=== PATIENT | male | born 1955 | race Caucasian/White ===

== ENCOUNTER 2017-06-08 17:49 | Emergency (ER) | payer MEDICARE, MEDICAID ==
--- NOTE | 2017-06-08 21:57 | RAD ---
TWO VIEW CHEST: 06/08/17 HISTORY: Cough. COMPARISON: 03/06/14. Also compared to 11/19/16. Lungs remain clear of infiltrate. Heart size is upper normal and stable. Dual lead pacemaker device i s unchanged. IMPRESSION: No acute lung process. POS: [facility]
== END 2017-06-08 19:57 | disposition home or self-care (01) ==
LOC: ERS 17:49
DX: J20.9 Acute bronchitis, unspecified (principal); I25.10 Atherosclerotic heart disease of native coronary artery without angina pectoris; E11.22 Type 2 diabetes mellitus with diabetic chronic kidney disease; Z86.73 Personal history of transient ischemic attack (TIA), and cerebral infarction without residual deficits; E78.00 Pure hypercholesterolemia, unspecified; F31.9 Bipolar disorder, unspecified; F41.9 Anxiety disorder, unspecified; F17.210 Nicotine dependence, cigarettes, uncomplicated; J44.9 Chronic obstructive pulmonary disease, unspecified; G43.909 Migraine, unspecified, not intractable, without status migrainosus; I12.9 Hypertensive chronic kidney disease with stage 1 through stage 4 chronic kidney disease, or unspecified chronic kidney disease; M19.90 Unspecified osteoarthritis, unspecified site; N18.9 Chronic kidney disease, unspecified
CPT/HCPCS: 71020; 87081; 87430; 94640; 99406; J7620

== ENCOUNTER 2017-10-04 16:28 | Emergency (ER) | payer MEDICARE, MEDICAID ==
[2017-10-04 17:48] LABS: #Basophils 0.1 thou/uL (0.0-0.2); #Eosinphils 0.2 thou/uL (0.0-0.7); #Lymphocytes 2.3 thou/uL (1.20-3.40); #Monocytes 1.1 thou/uL (0.11-0.59); %Basophils 0.8 % (0.0-1.0); %Eosinophils 1.4 % (0.0-10.0); %Lymphocytes 15.4 % (21.0-51.0); %Monocytes 7.3 % (0.0-10.0); %Neutrophils 75.1 % (42.0-75.0); Hemoglobin 18.9 g/dL (14.0-18.0); Mean Corpuscular HGB CONC 33.7 g/dL (32.0-36.0); Mean Corpuscular Hemoglobin 31.6 pg (27.0-31.0); Mean Corpuscular Volume 93.8 fl (80.0-94.0); Mean Platelet Volume 7.3 fL (7.4-10.4); Platelet Count 256 thou/uL (130-400); RBC Distribution Width 12.7 % (11.5-14.5); Red Blood Cell (RBC) Count 5.99 mill/uL (4.70-6.10); White Blood Cell (WBC) Count 14.6 thou/uL (4.8-10.8)
[2017-10-04 18:09] LABS: ALT (SGPT) 29 U/L (8-55); AST (SGOT) 29 U/L (5-34); Albumin 4.6 g/dL (3.4-4.8); Alkaline Phosphatase 89 U/L (40-150); Anion Gap 14 mmol/L (10-20); BUN (Urea Nitrogen) 13 mg/dL (8.4-25.7); Bilirubin, Total 0.8 mg/dL (0.2-1.2); Calc. Creatinine Clearance 0 mL/min (70-130); Calcium 10.5 mg/dL (7.8-10.44); Carbon Dioxide 29 mmol/L (23-31); Chloride 98 mmol/L (98-107); Estimated GFR-MDRD 64; Globulin 4.1 g/dL (2.4-3.5); Glucose 214 mg/dL (80-115); Potassium 4.2 mmol/L (3.5-5.1); Protein, Total 8.7 g/dL (5.8-8.1); Sodium 137 mmol/L (136-145)
--- NOTE | 2017-10-04 18:38 | RAD ---
RADIOGRAPH CHEST 2 VIEWS: DATE: 10-04-17 HISTORY: 62-year-old male with abscess in the left chest. FINDINGS: There is no air space density, pulmonary edema, pleural effusion, pneumothorax, or cardiomegaly. Ther e is no interval change compared to 06-08-17. If abscess in the soft tissues is to be imaged, a CT wo uld be necessary, preferably with IV contrast. IMPRESSION: 1. No acute cardiopulmonary findings. 2. Automatic implantable cardioverter/defibrillator. 3. Old, healed right rib fracture deformities. migue POS: [facility]
== END 2017-10-04 18:38 | disposition home or self-care (01) ==
LOC: ERS 16:28
DX: L03.313 Cellulitis of chest wall (principal); I25.10 Atherosclerotic heart disease of native coronary artery without angina pectoris; E11.22 Type 2 diabetes mellitus with diabetic chronic kidney disease; I12.0 Hypertensive chronic kidney disease with stage 5 chronic kidney disease or end stage renal disease; N18.9 Chronic kidney disease, unspecified; J44.9 Chronic obstructive pulmonary disease, unspecified; N40.0 Benign prostatic hyperplasia without lower urinary tract symptoms; E78.5 Hyperlipidemia, unspecified; G43.909 Migraine, unspecified, not intractable, without status migrainosus; G47.30 Sleep apnea, unspecified; F41.9 Anxiety disorder, unspecified; F43.10 Post-traumatic stress disorder, unspecified; F31.9 Bipolar disorder, unspecified; F17.210 Nicotine dependence, cigarettes, uncomplicated; Z86.73 Personal history of transient ischemic attack (TIA), and cerebral infarction without residual deficits; Z71.6 Tobacco abuse counseling; Z79.899 Other long term (current) drug therapy
CPT/HCPCS: 36415; 71046; 80053; 85025; 99406

== ENCOUNTER 2018-08-04 06:08 | Observation (INO) | payer MEDICARE, MEDICAID ==
[2018-08-04 06:29] LABS: #Eosinphils 0.1 thou/uL (0.0-0.7); #Lymphocytes 1.2 thou/uL (1.20-3.40); #Monocytes 0.8 thou/uL (0.11-0.59); #Neutrophils 3.8 thou/uL (1.40-6.50); %Basophils 0.4 % (0.0-1.0); %Eosinophils 1.1 % (0.0-10.0); %Lymphocytes 20.4 % (21.0-51.0); %Monocytes 13.8 % (0.0-10.0); %Neutrophils 64.3 % (42.0-75.0); Hemoglobin 17.7 g/dL (14.0-18.0); Mean Corpuscular HGB CONC 34.3 g/dL (32.0-36.0); Mean Corpuscular Hemoglobin 30.9 pg (27.0-31.0); Mean Corpuscular Volume 90.1 fL (78.0-98.0); Mean Platelet Volume 7.5 fL (7.4-10.4); Platelet Count 160 thou/uL (130-400); RBC Distribution Width 12.1 % (11.5-14.5); Red Blood Cell (RBC) Count 5.72 mill/uL (4.70-6.10); White Blood Cell (WBC) Count 5.9 thou/uL (4.8-10.8)
[2018-08-04] MEDS ORDERED: Nitroglycerin 0.4 MG TAB 1 EACH ONE ×2 (06:52→06:54)
[2018-08-04] MEDS ORDERED: Nitroglycerin 2% Ointment 1 INCH/1 GM Packet ONE (06:52)
[2018-08-04 06:54] LABS: ALT (SGPT) 43 U/L (8-55); AST (SGOT) 40 U/L (5-34); Alkaline Phosphatase 107 U/L (40-150); Anion Gap 16 mmol/L (10-20); BUN (Urea Nitrogen) 15 mg/dL (8.4-25.7); Bilirubin, Total 0.5 mg/dL (0.2-1.2); CK (CPK) 31 U/L (30-200); Calc. Creatinine Clearance 0 mL/min (70-130); Calcium 9.8 mg/dL (7.8-10.44); Carbon Dioxide 26 mmol/L (23-31); Chloride 99 mmol/L (98-107); Estimated GFR-MDRD 78; Globulin 3.8 g/dL (2.4-3.5); Glucose 199 mg/dL (80-115); Potassium 3.6 mmol/L (3.5-5.1); Protein, Total 7.8 g/dL (5.8-8.1); Sodium 137 mmol/L (136-145)
[2018-08-04 07:15] LABS: CKMB 1.3 ng/mL (0-6.6)
--- NOTE | 2018-08-04 08:43 | RAD ---
ONE VIEW CHEST: HISTORY: Pain. COMPARISON: 11/19/2016. FINDINGS: Stable left-sided transvenous defibrillator. Stable cardiac silhouette. The pulmonary vessels and h ilum are normal. Costophrenic angles are clear. No consolidation or mass. Lungs are hyperinflated. Chronic changes are noted. No pneumothorax. Old right rib fractures are noted. IMPRESSION: No acute cardiopulmonary process. POS: [facility]
--- NOTE | 2018-08-04 09:01 | CT ---
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 PT. Reports pa in radiates to middle back. Associated with throbbing and sore right arm. TECHNIQUE: Axial computed tomographic angiography images of the chest with intravenous contrast using CT angiogr aphy protocol. MIP reconstructed images were created and reviewed. COMPARISON: No relevant prior studies available. FINDINGS: Tubes, catheters and devices: A defibrillator device is present, and its leads are in appropriate pos ition. Pulmonary arteries: There is no evidence of peripheral filling defects within the pulmonary arterial circulation to suggest pulmonary embolism. Aorta: The aorta is normal. There is no evidence of aortic dissection, leak, rupture, or other compli cations. Lungs: Normal. No consolidation. No masses. Pleural space: Normal. No pneumothorax. No pleural effusion. Heart: There is a small pericardial fluid collection present. Lymph nodes: Unremarkable. No enlarged lymph nodes. Bones/joints: There are healed right rib fractures. Soft tissues: Unremarkable. IMPRESSION: 1. There is no evidence of aortic dissection, leak, rupture, or other complications. 2. There is no CT evidence of acute pulmonary embolism. CT Angiography Abdomen With Contrast EXAM DATE/TIME: 08/04/2018 6:38 AM TECHNIQUE: Axial computed tomographic angiography images of the abdomen with intravenous contrast material, incl uding non-contrast images if performed. MIP and/or 3D reconstructed images were created and reviewed. MIP reconstructed images were created and reviewed. COMPARISON: No relevant prior studies available. FINDINGS: Lungs: Unremarkable. No consolidation. VASCULATURE: Aorta: There is no evidence of aortic dissection, leak, rupture, or other complications. Celiac trunk and mesenteric arteries: There is trace atherosclerotic calcification at the origin of t he celiac artery and SMA without significant stenosis. Renal arteries: There is mild atherosclerosis at the origins of the bilateral renal arteries resultin g in mild stenosis. Left iliac arteries: There is mild to moderate atherosclerotic calcification at the iliac bifurcation and within the visualized bilateral internal iliac arteries. ABDOMEN: Liver: There are no focal liver lesions identified. Gallbladder and bile ducts: The gallbladder is normal. There is no evidence of biliary ductal dilatio n. Pancreas: The pancreas appears normal. No ductal dilatation. Spleen: There are multiple splenic hypodensities that cannot be further characterized on the current examination. The spleen demonstrates punctate calcifications, consistent with remote granulomatous organism exposure. Adrenals: The adrenal glands are normal. Kidneys and ureters: There are multiple renal hypodensities that cannot be further characterized on t he current examination. Stomach and bowel: The stomach is normal. The duodenum is unremarkable. There is no evidence of intes tinal perforation or obstruction. Appendix: A normal appendix is identified. Intraperitoneal space: Unremarkable. No free air. No significant fluid collection. Bones/joints: Unremarkable. No acute fracture. No dislocation. Soft tissues: Unremarkable. Lymph nodes: Unremarkable. No enlarged lymph nodes. IMPRESSION: There is no evidence of aortic dissection, leak, rupture, or other complications. Thank you for allowing us to participate in the care of your patient. Dictated and Authenticated by: Surinder Ruiz MD 08/04/2018 6:56 AM Central Time ([place] & [place]) FINAL REPORT CT ANGIOGRAM OF THORACIC AND ABDOMINAL AORTA: Date: 08/04/18 HISTORY: Chest pain. Evaluate for dissection. TECHNIQUE: CT angiogram of the thoracic and abdominal aorta performed in the axial plane. Three-dimensional refo rmatted images are submitted for interpretation. FINDINGS/IMPRESSION: This report is in agreement with the preliminary report by [facility]. There is no significant aneurysm or dissection in the thoracic or abdominal aorta. There is mild atherosclerosis involving both renal [place] without significant narrowing. There is minimal atherosclerosis involving the origin of the celiac artery and superior mesenteric artery. There is atherosclerosis with mild moderate narrowing and a short segment ulceration involving the left common iliac artery. Hypodensities in the spleen and kidneys are too small to characterize. Splenic hypodensities may, in part, be due to arterial phase of imaging. Visualized alimentary canal is unremarkable. POS: [facility]
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
[2018-08-04] MEDS ORDERED: Ondansetron ODT 4 MG TAB PO PRN (10:09)
[2018-08-04] MEDS ORDERED: Nitroglycerin 0.4 MG TAB (25 Tab Bottle) PO PRN (10:09)
[2018-08-04] MEDS ORDERED: Nitroglycerin 2% Ointment 1 INCH/1 GM Packet TOP PRN (10:09)
[2018-08-04 10:13] LABS: Troponin I 0.046 ng/mL (< 0.028)
[2018-08-04] MEDS ORDERED: Dextrose 5% in Water 1,000 ML IV PRN (11:14)
[2018-08-04] MEDS ORDERED: Dextrose 50% Abboject 50 ML SYRINGE SLOW IVP PRN (11:14)
[2018-08-04] MEDS ORDERED: HumaLOG 300 UNITS/3 ML VIAL SC PRN ×2 (11:14)
[2018-08-04] MEDS ORDERED: Lactated Ringer's 1,000 ML IV SCH (11:15)
[2018-08-04] MEDS ORDERED: Iopamidol 370 76% 100 ML VIAL ONE (11:20)
[2018-08-04 12:43] LABS: Troponin I 0.061 ng/mL (< 0.028)
[2018-08-04] MEDS ORDERED: traMADol HCl 50 MG TAB PO PRN ×5 (14:42→21:35)
--- NOTE | 2018-08-04 17:48 | ULT ---
ULTRASOUND ABDOMEN LIMITED: (RIGHT UPPER QUADRANT) 08/04/18 HISTORY: 63-year-old male with right upper quadrant abdominal pain. FINDINGS: The gallbladder has normal wall thickness and has no evidence of gallstones or sludge. The hepatic e chogenicity is normal. The right kidney has normal echogenicity and has no hydronephrosis. The panc reas is visualized, although ultrasound is relatively insensitive for pancreatic pathology compared t o CT and MRI. There is no biliary dilation. The common duct caliber is 2 mm. There is an approximat perico 1.5 cm round exophytic cyst protruding medially from the right renal mid pole. IMPRESSION: 1. No evidence of cholelithiasis, acute cholecystitis, or biliary obstruction. 2. Incidental finding of a small right renal cyst. 3. Otherwise negative. migue frey POS: [facility]
[2018-08-04] MEDS: NIFEdipine XL 60 MG TAB PO SCH (18:32)
[2018-08-04] MEDS: Nicotine 14 MG PATCH TD SCH (18:32)
--- NOTE | 2018-08-04 18:44 | HP ---
I have read and gone over the history and physical for Dr. Becky Lorenzo. I have discussed the case with her. I agree with her assessment and plan. HISTORY OF PRESENT ILLNESS: Briefly, Mr. Valdez is a 63-year-old white male patient with multiple comorbidities including previous history of coronary artery disease and COPD. He presented with several areas of pain in his lower back, right shoulder, right chest, and right upper quadrant of the abdomen. This has been ongoing for at least the last 12 to 24 hours. He is subsequently being admitted for further evaluation of numerous complaints. He also states that during the night he had at least a dozen episodes of vomiting and diarrhea and this morning does appear somewhat dry. No recent travel or unusual exposures. PHYSICAL EXAMINATION: GENERAL: He is awake, alert, very pleasant, but it does not appear to feel well. He is oriented x3. VITAL SIGNS: Stable except for slight tachycardia of 112. EAR, NOSE, AND THROAT: Mucous membranes are dry. NECK: Supple. CARDIAC: PMI is in the 5th intercostal space. Distant heart sounds with an S4 gallop. No murmur or rub are noted. LUNGS: His lungs are diminished, but clear without rales, rhonchi, wheezes. He is in no respiratory distress. ABDOMEN: He is somewhat tender in the right upper quadrant and seems to have a positive Sanz sign with palpation. We will delineate this further with an ultrasound. EXTREMITIES: Trace edema. NEUROLOGIC: No focal deficits. LABORATORY DATA: Thus far CBC; white count 5900, hemoglobin 17.7, hematocrit 51.5 with an MCV of 90. Chemistry; sodium 137, potassium 3.6, chloride 99, bicarb 26, BUN 15, creatinine 0.97, glucose 199. Tropes x2 are 0.042 and 0.046. His EKG does not show any acute ischemic changes. ASSESSMENT: Atypical back, chest and abdominal discomfort in a patient with a history of coronary artery disease and chronic obstructive pulmonary disease. PLAN: We will go ahead and perform a right upper quadrant ultrasound and stress Myoview. Proceed based on findings. Job ID: [id number]
[2018-08-04 19:03] LABS: CKMB 1.7 ng/mL (0-6.6)
[2018-08-04] MEDS: levETIRAcetam 500 MG TAB PO SCH ×3 (19:35→22:45)
[2018-08-04] MEDS: Atorvastatin Calcium 40 MG TAB PO SCH ×2 (19:35→22:08)
[2018-08-04 19:59] VITALS: BMI 29.0
[2018-08-04] MEDS ORDERED: HYDROcodone/Acetaminophen 10/325 mg Tablet PO SCH (21:00)
[2018-08-04] MEDS ORDERED: Metoprolol Tartrate 25 MG TAB PO SCH (21:00)
[2018-08-04] MEDS ORDERED: Atorvastatin Calcium 40 MG TAB PO SCH (21:00)
[2018-08-04] MEDS ORDERED: Insulin Glargine 60 UNITS in Pre-Filled Syringe 1 EACH SC SCH (21:00)
[2018-08-04] MEDS: Lactated Ringer's 1,000 ML IV SCH ×2 (22:13)
[2018-08-05] MEDS: Lactated Ringer's 1,000 ML IV SCH (08:10)
[2018-08-05] MEDS: levETIRAcetam 500 MG TAB PO SCH (08:11)
[2018-08-05] MEDS: NIFEdipine XL 60 MG TAB PO SCH (08:11)
[2018-08-05] MEDS: Nicotine 14 MG PATCH TD SCH (08:12)
--- NOTE | 2018-08-05 08:38 | PDOC.FM ---
- Subjective Subjective: Patient reports that the tramadol has helped with his back pain. He denies any current chest pain, SOB. He reports he has continued to have N/V/D, but that it has been a little better than on initial presentation. He denies any F/C. - Objective MAR Reviewed: Yes Vital Signs & Weight: Vital Signs (12 hours) Temp Pulse Resp BP Pulse Ox 08/05/18 08:11 62 08/05/18 07:32 62 16 105/66 97 08/05/18 03:06 98.3 F 98 20 125/89 95 08/04/18 23:43 97.9 F 94 18 131/79 94 L Weight Weight 81.647 kg I&O: 08/04/18 08/05/18 08/06/18 06:59 06:59 06:59 Intake Total 1445 Output Total 500 Balance 945 Result Diagrams: 08/04/18 06:19 08/04/18 06:19 Phys Exam - Physical Examination Constitutional: NAD HEENT: moist MMs, sclera anicteric Respiratory: no wheezing, no rales, no rhonchi, clear to auscultation bilateral Cardiovascular: RRR, no significant murmur, no rub Gastrointestinal: soft, no distention, positive bowel sounds mildly tender to palpation in lower quadrants Musculoskeletal: no edema, pulses present Tenderness over lumbar paraspinal muscles Neurological: non-focal, moves all 4 limbs Psychiatric: normal affect, A&O x 3 Skin: normal turgor, cap refill <2 seconds Dx/Plan (1) Chest pain Code(s): R07.9 - CHEST PAIN, UNSPECIFIED Status: Acute Qualifiers: Chest pain type: unspecified Qualified Code(s): R07.9 - Chest pain, unspecified (2) Gastroenteritis Code(s): K52.9 - NONINFECTIVE GASTROENTERITIS AND COLITIS, UNSPECIFIED Status : Acute (3) Dehydration Code(s): E86.0 - DEHYDRATION Status: Acute (4) MARIBETH (obstructive sleep apnea) Code(s): G47.33 - OBSTRUCTIVE SLEEP APNEA (ADULT) (PEDIATRIC) Status: Acute (5) COPD (chronic obstructive pulmonary disease) Status: Acute Qualifiers: COPD type: chronic bronchitis Chronic bronchitis type: unspecified Qualified Code(s): J42 - Unspecified chronic bronchitis (6) CKD (chronic kidney disease) stage 2, GFR 60-89 ml/min Code(s): N18.2 - CHRONIC KIDNEY DISEASE, STAGE 2 (MILD) Status: Acute (7) Anxiety and depression Code(s): F41.9 - ANXIETY DISORDER, UNSPECIFIED; F32.9 - MAJOR DEPRESSIVE DISORDER, SINGLE EPISODE, UNSPECIFIED Status: Chronic (8) BPH (benign prostatic hyperplasia) Code(s): N40.0 - BENIGN PROSTATIC HYPERPLASIA WITHOUT LOWER URINRY TRACT SYMP Status: Chronic Qualifiers: Lower urinary tract symptom presence: symptoms present Qualified Code(s): N40.1 - Benign prostatic hyperplasia with lower urinary tract symptoms (9) CAD (coronary artery disease) Code(s): I25.10 - ATHSCL HEART DISEASE OF [place] CORONARY ARTERY W/O ANG PCTRS Status: Chronic Qualifiers: Coronary Disease-Associated Artery/Lesion type: [place] artery [place] vs. transplanted heart: [place] heart Associated angina: angina presence unspecified Qualified Code(s): I25.10 - Atherosclerotic heart disease of [place] coronary artery without angina pectoris (10) DM type 2 (diabetes mellitus, type 2) Status: Chronic Qualifiers: Diabetes mellitus baseball coach insulin use: with baseball coach use Diabetes mellitus complication status: with unspecified complications Qualified Code(s) : E11.8 - Type 2 diabetes mellitus with unspecified complications; Z79.4 - habilitative interventionist (current) use of insulin (11) Dyslipidemia Code(s): E78.5 - HYPERLIPIDEMIA, UNSPECIFIED Status: Chronic (12) GERD (gastroesophageal reflux disease) Code(s): K21.9 - GASTRO-ESOPHAGEAL REFLUX DISEASE WITHOUT ESOPHAGITIS Status: Chronic Qualifiers: Esophagitis presence: without esophagitis Qualified Code(s): K21.9 - Gastro -esophageal reflux disease without esophagitis (13) HTN (hypertension) Code(s): I10 - ESSENTIAL (PRIMARY) HYPERTENSION Status: Chronic Qualifiers: Hypertension type: essential hypertension (14) Muscle spasm of back Code(s): M62.830 - MUSCLE SPASM OF BACK Status: Acute - Plan Plan: Chest Pain Atypical R sided chest pain that was sudden onset. CTA chest negative for dissection. Initial trop 0.042, peak trop 0.061. EKG showed no acute ST/T wave changes. Pain not improved with nitro and not reproducible on palpation. CXR showed no acute findings. RUQ US showed no signs of gallbladder pathology. Lipase WNL. -Aspirin -Stress test -Nitro prn -FLP pending -Continue statin Indeterminate Troponin Initial trop 0.042, peak trop 0.061. -Plan as above Gastroenteritis Pt with multiple episodes of emesis and diarrhea concerning for a viral gastroenteritis. s/p 1L LR bolus. -LR @ 120 -Zofran prn Dehydration -Plan as above Muscle Spasm Low back pain consistent with paraspinal muscle spasm -tylenol prn -Consider muscle relaxer CAD s/p stent -Continue aspirin and statin DM2 -Continue home lantus -SSI -CC diet -Accuchecks ACHS BPH -Cont flomax HLD -FLP -Cont atorvastatin HTN -Continue home enalapril, nifedipine -Held metoprolol for stress COPD No signs of acute exacerbation No need for O2 unless O2 sats < 88% -Duonebs prn CKD2 Stable from baseline -Continue to monitor Bipolar d/o -Continue home meds Seizure d/o -Continue home keppra Dispo: d/c home pending stress and PO challenge.
[2018-08-05 08:41] LABS: Anion Gap 11 mmol/L (10-20); BUN (Urea Nitrogen) 13 mg/dL (8.4-25.7); Calc. Creatinine Clearance 104 mL/min (70-130); Calcium 8.9 mg/dL (7.8-10.44); Carbon Dioxide 29 mmol/L (23-31); Cardiac Risk 3.9 (Less than 4.5); Chloride 100 mmol/L (98-107); Cholesterol 86 mg/dl (< 200 Desired); Estimated GFR-MDRD Greater than 90; Glucose 124 mg/dL (80-115); HDL Cholesterol 22 mg/dL (>60 Neg Risk); LDL Cholesterol, Calculated 20 mg/dL; Potassium 3.3 mmol/L (3.5-5.1); Sodium 137 mmol/L (136-145); Triglycerides 220 mg/dL (Less than 150)
[2018-08-05] MEDS ORDERED: Potassium Chloride 20 MEQ TAB PO SCH (08:45)
[2018-08-05] MEDS ORDERED: Tamsulosin HCl 0.4 MG CAP PO SCH (09:00)
[2018-08-05] MEDS ORDERED: Baclofen 10 MG TAB PO SCH (09:00)
[2018-08-05] MEDS ORDERED: Aspirin 325 MG TAB PO SCH (09:00)
[2018-08-05] MEDS ORDERED: DULoxetine 60 MG CAP PO SCH (09:00)
[2018-08-05] MEDS ORDERED: Regadenoson 0.4 MG/5 ML SYRINGE ONE (09:23)
--- NOTE | 2018-08-05 10:12 | PRG ---
DATE OF SERVICE: 08/05/2018 SUBJECTIVE: Mr. Valdez is much improved this morning. He is in much better spirits. His gallbladder ultrasound did not show any evidence of cholecystitis or cholelithiasis. He has not yet been sent for his stress Myoview. After this is completed and if normal or showing no reversible defects, he will be discharged. Job ID: [id number]
--- NOTE | 2018-08-05 13:50 | NM ---
NUCLEAR MEDICINE CARDIAC MYOCARDIAL PERFUSION SPECT EJECTION FRACTION STUDY WALL MOTION CINE: DATE: 08/05/18 HISTORY: 63-year-old hypertensive male smoker with coronary artery disease and prior myocardial infarction, di abetes mellitus, and dyslipidemia, presents with acute chest pain. TECHNIQUE: Number of days: 2 Rest study: Tc99m sestamibi (Cardiolite) dose: 27.6 mCi Pharmacologic stress: Lexiscan dose: 0.4 mg Stress study: Tc99m sestamibi (Cardiolite) dose: 32.7 mCi FINDINGS: CARDIAC (MYOCARDIAL PERFUSION) SPECT There is a fixed perfusion defect at the inferior wall. There are no reversible perfusion defects. EJECTION FRACTION STUDY EF = 38% WALL MOTION CINE No focal wall motion abnormality identified. IMPRESSION: 1. Inferior wall infarction/scar. 2. No reversible ischemia identified. 3. Decreased left ventricular ejection fraction of 38%. CALVIN Weir POS: [facility]
[2018-08-05 15:34] VITALS: BP 95/71; TEMP 97.5
--- NOTE | 2018-08-06 13:34 | EKG ---
Test Reason : Blood Pressure : / mmHG Vent. Rate : 102 BPM Atrial Rate : 102 BPM P-R Int : 174 ms QRS Dur : 090 ms QT Int : 366 ms P-R-T Axes : 042 007 069 degrees QTc Int : 477 ms Electronic atrial pacemaker Possible Inferior infarct , age undetermined Possible Anterior infarct , age undetermined Abnormal ECG left ventricular hypertrophy Confirmed by ROSINA WATKINS, SHAUN Up (9), supervising film or videotape editor JOANA BALDERAS ([id number]) on 08/06/2018 1:33:59 PM Referred By: Confirmed By:SHAUN ALMAGUER MD
--- NOTE | 2018-08-09 04:58 | DIS ---
DATE OF ADMISSION: 08/04/2018 DATE OF DISCHARGE: 08/05/2018 ADMITTING ATTENDING: Dr. Raymond Hansen. DISCHARGE ATTENDING: Dr. Raymond Hansen. CONSULTS: None. PROCEDURES: None. IMAGIN. Chest x-ray showed no acute cardiopulmonary process. 2. CT dissection showed no evidence of aortic dissection, leak, rupture or other complications. 3. Abdominal ultrasound showed no evidence of cholelithiasis, acute cholecystitis or biliary obstruction, incidental finding of some right renal cysts. 4. Nuclear stress test showed fixed perfusion defect of the inferior wall, no reversible perfusion defects. Diffuse left ventricular ejection fraction at 38% . 5. Echocardiogram showed EF of 55% to 60%, severe concentric left ventricular hypertrophy, E/A for reversal noted suggestive of diastolic dysfunction. PRIMARY DIAGNOSES: 1. Atypical chest pain. 2. Gastroenteritis. 3. Dehydration. 4. Muscle spasm in the lower back. 5. Indeterminant troponin. SECONDARY DIAGNOSES: 1. Coronary artery disease, status post stent. 2. Diabetes type 2. 3. Benign prostatic hypertrophy. 4. Hyperlipidemia. 5. Hypertension. 6. Chronic obstructive pulmonary disease. 7. Chronic kidney disease 2. 8. Bipolar disorder. 9. Seizure disorder. DISCHARGE MEDICATIONS: 1. Atorvastatin 40 mg p.o. daily. 2. Baclofen 10 mg p.o. b.i.d. 3. Duloxetine 60 mg p.o. daily. 4. Enalapril 2.5 mg p.o. daily. 5. Furosemide 20 mg p.o. daily. 6. Lantus 60 units subcu at bedtime. 7. Keppra 1000 mg p.o. b.i.d. 8. Metoprolol tartrate 50 mg p.o. b.i.d. 9. Nifedipine 60 mg p.o. daily. 10. Zofran 4 mg p.o. q.6h p.r.n. nausea or vomiting. 11. Sertraline 25 mg p.o. daily. 12. Tamsulosin 0.4 mg two caps p.o. daily. 13. Tramadol 50 mg one or two tabs q.6h p.r.n. pain. DISCONTINUED MEDICATIONS: None. HISTORY OF PRESENT ILLNESS/HOSPITAL COURSE: This is a 63-year-old male with a past medical history of coronary artery disease, diabetes, hypertension, hyperlipidemia, and COPD, who presented to the ER complaining of pain. The patient reported the pain was predominantly in his lower back and then some in his upper back and in the right side of his chest and shoulder and then also reported some lower abdominal pain. The patient reported that his symptoms started suddenly at 8 p.m. the night prior to his admission and that was associated with multiple episodes of vomiting and diarrhea. The patient did not have any shortness of breath and had only a chronic cough and that had not worsened. The patient denied any trauma or injury. The patient was found to be saturating at 88% on room air, so was started on oxygen, however, the patient has chronic COPD and was not reporting any worsening shortness of breath. The patient was given aspirin and nitro in the ER. He was admitted for a chest pain to rule out, also mildly dehydrated due to the recurrent nausea, vomiting, inability to tolerated p.o. and so he was started on fluids. He did have an initial troponin of 0.042 that had a peak of 0.061 and then down trended to 0.053. The patient had no acute ST or T wave changes on his EKG. The patient had a stress test done that showed evidence of an old prior infarct, but no acute reversible ischemia. He did not have recurrence of his chest pain and his nausea and vomiting improved where he was able to tolerate p.o. He had an aortic dissection ruled out and had no evidence of pneumonia on his chest x-ray. The patient's chest pain was likely a referred chest pain from his abdominal pain versus a musculoskeletal chest pain. The patient's back pain was found to be muscle spasm of his paraspinal muscles and his lumbar spine. This was treated with baclofen. The patient was found to have a likely viral gastroenteritis and was given Zofran for symptom management. By the end of this hospitalization, the patient had no further episodes of chest pain, was no longer having significant vomiting or diarrhea, was able to tolerate p.o. and was sent home with prescription for baclofen and Zofran. DISPOSITION: Stable. DISCHARGE INSTRUCTIONS: 1. Location: Home. 2. Diet: Heart healthy and consistent carb. 3. Activity: As tolerated. 4. Follow up with Dr. Indra Barr in 7 to 14 days. Job ID: [id number] [facility]
== END 2018-08-05 16:32 | disposition home or self-care (01) ==
LOC: ERS 06:08 → ERHOLD 09:21 → 2SW 16:25
PROVIDERS: ADMIT Family Medicine; ATTEND Family Medicine
DX: R07.89 Other chest pain (principal); K52.9 Noninfective gastroenteritis and colitis, unspecified; E86.0 Dehydration; M62.830 Muscle spasm of back; I25.10 Atherosclerotic heart disease of native coronary artery without angina pectoris; I12.9 Hypertensive chronic kidney disease with stage 1 through stage 4 chronic kidney disease, or unspecified chronic kidney disease; E11.22 Type 2 diabetes mellitus with diabetic chronic kidney disease; N18.2 Chronic kidney disease, stage 2 (mild); J44.9 Chronic obstructive pulmonary disease, unspecified; E78.5 Hyperlipidemia, unspecified; N40.0 Benign prostatic hyperplasia without lower urinary tract symptoms; G43.909 Migraine, unspecified, not intractable, without status migrainosus; G47.33 Obstructive sleep apnea (adult) (pediatric); G40.909 Epilepsy, unspecified, not intractable, without status epilepticus; F31.9 Bipolar disorder, unspecified; F41.9 Anxiety disorder, unspecified; F17.210 Nicotine dependence, cigarettes, uncomplicated; F43.10 Post-traumatic stress disorder, unspecified; Z86.73 Personal history of transient ischemic attack (TIA), and cerebral infarction without residual deficits; K21.9 Gastro-esophageal reflux disease without esophagitis; Z95.0 Presence of cardiac pacemaker; Z95.5 Presence of coronary angioplasty implant and graft; Z88.1 Allergy status to other antibiotic agents; Z88.6 Allergy status to analgesic agent; Z88.2 Allergy status to sulfonamides; Z79.4 Long term (current) use of insulin; Z79.899 Other long term (current) drug therapy; Z98.890 Other specified postprocedural states
CPT/HCPCS: 71045; 71275; 76705; 78452; 80048; 80053; 80061; 82550; 82553; 82962 ×2; 83690; 84484 ×2; 85025; 93005; 93017; 93306; 94760; 96360; 96361 ×2; 99285; 99406; A9500; G0378 ×2; 36415; 36416; J2785; Q0162

== ENCOUNTER 2018-09-12 14:16 | Emergency (ER) | payer MEDICARE, MEDICAID ==
--- NOTE | 2018-09-12 16:30 | ULT ---
DOPPLER VENOUS ULTRASOUND OF THE RIGHT LOWER EXTREMITY: INDICATION: Swollen and edematous right calf for 1 day. TECHNIQUE: Mills scale, color Doppler, and vascular duplex with spectral analysis was performed of the deep venou s structures of both lower extremities. The common femoral vein, superficial femoral vein, popliteal vein, posterior tibial vein, proximal greater saphenous, and proximal profunda veins were assessed bi laterally. FINDINGS: There is normal compression, flow, and augmentation seen within the deep venous structures of the rig ht lower extremity. IMPRESSION: No evidence of deep vein thrombosis within the right lower extremity. POS: [facility]
[2018-09-12 16:48] LABS: #Basophils 0.1 thou/uL (0.0-0.2); #Eosinphils 0.2 thou/uL (0.0-0.7); #Lymphocytes 2.4 thou/uL (1.20-3.40); #Monocytes 0.9 thou/uL (0.11-0.59); #Neutrophils 12.4 thou/uL (1.40-6.50); %Basophils 0.6 % (0.0-1.0); %Eosinophils 1.4 % (0.0-10.0); %Lymphocytes 14.8 % (21.0-51.0); %Monocytes 5.5 % (0.0-10.0); %Neutrophils 77.7 % (42.0-75.0); Hemoglobin 15.8 g/dL (14.0-18.0); Mean Corpuscular HGB CONC 34.3 g/dL (32.0-36.0); Mean Corpuscular Hemoglobin 32.2 pg (27.0-31.0); Mean Corpuscular Volume 94.1 fL (78.0-98.0); Mean Platelet Volume 7.3 fL (7.4-10.4); Platelet Count 237 thou/uL (130-400); RBC Distribution Width 12.8 % (11.5-14.5); Red Blood Cell (RBC) Count 4.89 mill/uL (4.70-6.10); White Blood Cell (WBC) Count 15.9 thou/uL (4.8-10.8)
--- NOTE | 2018-09-12 17:08 | CT ---
CT OF HEAD NONCONTRAST: COMPARISON: 11/19/2016. INDICATION: Emergency exam, swelling, progressive edema. FINDINGS: There is no acute intracranial hemorrhage, mass effect, or midline shift. There is a punctate hypoat tenuating focus of the left putamen, stable. There is a subtle linear oriented hypodensity of the ri ght hernandez radiata, stable, indicative of a chronic lacunar infarction. No interval acute intracrani al abnormality is identified. There is mild mucosal thickening within the paranasal sinuses. IMPRESSION: 1. No acute intracranial hemorrhage or mass effect. 2. Stable lacunar infarction of the left putamen and within the right hernandez radiata. POS: [facility]
[2018-09-12 17:12] LABS: ALT (SGPT) 49 U/L (8-55); AST (SGOT) 37 U/L (5-34); Albumin 4.3 g/dL (3.4-4.8); Alkaline Phosphatase 88 U/L (40-150); Anion Gap 14 mmol/L (10-20); BUN (Urea Nitrogen) 12 mg/dL (8.4-25.7); Bilirubin, Total 0.6 mg/dL (0.2-1.2); Calc. Creatinine Clearance 0 mL/min (70-130); Calcium 9.8 mg/dL (7.8-10.44); Carbon Dioxide 27 mmol/L (23-31); Chloride 100 mmol/L (98-107); Estimated GFR-MDRD Greater than 90; Globulin 3.1 g/dL (2.4-3.5); Glucose 166 mg/dL (80-115); Potassium 3.1 mmol/L (3.5-5.1); Protein, Total 7.4 g/dL (5.8-8.1); Sodium 138 mmol/L (136-145)
== END 2018-09-12 18:54 | disposition home or self-care (01) ==
LOC: ERS 14:16
DX: M79.89 Other specified soft tissue disorders (principal); E87.6 Hypokalemia; I25.10 Atherosclerotic heart disease of native coronary artery without angina pectoris; E11.9 Type 2 diabetes mellitus without complications; N40.0 Benign prostatic hyperplasia without lower urinary tract symptoms; E78.5 Hyperlipidemia, unspecified; G43.909 Migraine, unspecified, not intractable, without status migrainosus; G47.30 Sleep apnea, unspecified; Z86.73 Personal history of transient ischemic attack (TIA), and cerebral infarction without residual deficits; J44.9 Chronic obstructive pulmonary disease, unspecified; I12.9 Hypertensive chronic kidney disease with stage 1 through stage 4 chronic kidney disease, or unspecified chronic kidney disease; N18.9 Chronic kidney disease, unspecified; I25.2 Old myocardial infarction; F41.9 Anxiety disorder, unspecified; F31.9 Bipolar disorder, unspecified; F43.10 Post-traumatic stress disorder, unspecified; F17.210 Nicotine dependence, cigarettes, uncomplicated; Z79.899 Other long term (current) drug therapy; Z79.4 Long term (current) use of insulin
CPT/HCPCS: 70450; 80053; 83880; 84484; 85025; 93005

== ENCOUNTER 2019-06-13 15:09 | Emergency (ER) | payer MEDICARE, MEDICAID ==
[2019-06-13 15:36] LABS: #Basophils 0.1 thou/uL (0.0-0.2); #Eosinphils 0.5 thou/uL (0.0-0.7); #Lymphocytes 3.1 thou/uL (1.20-3.40); #Monocytes 1.4 thou/uL (0.11-0.59); #Neutrophils 12.7 thou/uL (1.40-6.50); %Basophils 0.6 % (0.0-1.0); %Eosinophils 2.6 % (0.0-10.0); %Lymphocytes 17.4 % (21.0-51.0); %Neutrophils 71.4 % (42.0-75.0); Hemoglobin 17.1 g/dL (14.0-18.0); Mean Corpuscular HGB CONC 33.2 g/dL (32.0-36.0); Mean Corpuscular Hemoglobin 29.8 pg (27.0-31.0); Mean Corpuscular Volume 89.9 fL (78.0-98.0); Mean Platelet Volume 6.8 fL (7.4-10.4); Platelet Count 320 thou/uL (130-400); RBC Distribution Width 12.1 % (11.5-14.5); Red Blood Cell (RBC) Count 5.75 mill/uL (4.70-6.10); White Blood Cell (WBC) Count 17.8 thou/uL (4.8-10.8)
--- NOTE | 2019-06-13 15:47 | RAD ---
Exam: XR Knee Rt 4 View STANDARD HISTORY: Right knee pain. Patient reports bump on knee which is painful to palpation. COMPARISON: None FINDINGS: Mild vascular calcifications are seen posterior to the knee. Calcifications overlie the medial and lateral joint compartments suggesting chondrocalcinosis. No acute fracture, dislocation, or other acute osseous abnormality is identified. There is a linear metallic foreign body seen overlying the subcutaneous soft tissues adjacent to the medial femoral condyle. IMPRESSION: 1. No acute osseous abnormality. 2. Chondrocalcinosis. 3. Tiny linear metallic foreign body overlying subcutaneous soft tissues adjacent to the medial femor al condyle. This is only appreciated on the AP projection.
[2019-06-13 15:57] LABS: ALT (SGPT) 22 U/L (8-55); AST (SGOT) 19 U/L (5-34); Albumin 4.1 g/dL (3.4-4.8); Alkaline Phosphatase 99 U/L (40-110); Anion Gap 11 mmol/L (10-20); BUN (Urea Nitrogen) 12 mg/dL (8.4-25.7); Bilirubin, Total 0.5 mg/dL (0.2-1.2); Calc. Creatinine Clearance 0 mL/min (70-130); Calcium 9.1 mg/dL (7.8-10.44); Carbon Dioxide 28 mmol/L (23-31); Chloride 101 mmol/L (98-107); Estimated GFR-MDRD 74; Globulin 3.8 g/dL (2.4-3.5); Glucose 157 mg/dL (80-115); Potassium 3.6 mmol/L (3.5-5.1); Protein, Total 7.9 g/dL (5.8-8.1); Sodium 136 mmol/L (136-145)
[2019-06-13] MEDS ORDERED: Lidocaine 2% MPF 10 ML AMP (For Epidural Use) ONE (18:37)
== END 2019-06-13 19:57 | disposition home or self-care (01) ==
LOC: ERS 15:09
DX: L02.415 Cutaneous abscess of right lower limb (principal); L03.115 Cellulitis of right lower limb; I25.10 Atherosclerotic heart disease of native coronary artery without angina pectoris; E11.9 Type 2 diabetes mellitus without complications; N40.0 Benign prostatic hyperplasia without lower urinary tract symptoms; E78.5 Hyperlipidemia, unspecified; E78.00 Pure hypercholesterolemia, unspecified; I10 Essential (primary) hypertension; G43.909 Migraine, unspecified, not intractable, without status migrainosus; G47.30 Sleep apnea, unspecified; Z86.73 Personal history of transient ischemic attack (TIA), and cerebral infarction without residual deficits; J44.9 Chronic obstructive pulmonary disease, unspecified; N18.9 Chronic kidney disease, unspecified; F41.9 Anxiety disorder, unspecified; F32.9 Major depressive disorder, single episode, unspecified; F17.210 Nicotine dependence, cigarettes, uncomplicated
CPT/HCPCS: 10061; 36415; 80053; 85025; 85652; 86140; 96372; J2001

== ENCOUNTER 2019-09-08 08:15 | Observation (INO) | payer MEDICARE, MEDICAID ==
[2019-09-08] MEDS ORDERED: Metoprolol Tartrate 5 MG/5 ML VIAL ONE ×2 (08:28→14:36)
[2019-09-08 08:48] LABS: #Basophils 0.1 thou/uL (0.0-0.2); #Eosinphils 0.2 thou/uL (0.0-0.7); #Lymphocytes 3.2 thou/uL (1.20-3.40); #Neutrophils 8.4 thou/uL (1.40-6.50); %Basophils 1.1 % (0.0-1.0); %Eosinophils 1.4 % (0.0-10.0); %Lymphocytes 24.7 % (21.0-51.0); %Monocytes 7.4 % (0.0-10.0); %Neutrophils 65.3 % (42.0-75.0); Mean Corpuscular HGB CONC 33.7 g/dL (32.0-36.0); Mean Corpuscular Hemoglobin 30.4 pg (27.0-31.0); Mean Corpuscular Volume 90.5 fL (78.0-98.0); Mean Platelet Volume 7.6 fL (7.4-10.4); Platelet Count 268 thou/uL (130-400); RBC Distribution Width 13.2 % (11.5-14.5); Red Blood Cell (RBC) Count 5.57 mill/uL (4.70-6.10); White Blood Cell (WBC) Count 12.9 thou/uL (4.8-10.8)
--- NOTE | 2019-09-08 09:06 | RAD ---
XR Chest 1 View Portable HISTORY: Defibrillator malfunction COMPARISON: 08/04/2018 FINDINGS: The heart size is normal. Left-sided AICD remains in place The lungs are well expanded with out focal areas of consolidation, pneumothorax or pleural effusions. IMPRESSION: No radiographic evidence of acute cardiopulmonary process.
[2019-09-08 09:13] LABS: ALT (SGPT) 30 U/L (8-55); AST (SGOT) 29 U/L (5-34); Albumin 4.4 g/dL (3.4-4.8); Alkaline Phosphatase 109 U/L (40-110); Anion Gap 15 mmol/L (10-20); BUN (Urea Nitrogen) 14 mg/dL (8.4-25.7); Bilirubin, Total 0.6 mg/dL (0.2-1.2); CK (CPK) 107 U/L (30-200); Calc. Creatinine Clearance 0 mL/min (70-130); Calcium 9.5 mg/dL (7.8-10.44); Carbon Dioxide 27 mmol/L (23-31); Chloride 98 mmol/L (98-107); Estimated GFR-MDRD 44; Globulin 3.6 g/dL (2.4-3.5); Glucose 317 mg/dL (80-115); Lipase 50 U/L (8-78); Potassium 3.1 mmol/L (3.5-5.1); Sodium 137 mmol/L (136-145)
[2019-09-08 09:33] LABS: CKMB 5.8 ng/mL (0-6.6)
--- NOTE | 2019-09-08 09:59 | PDOC.FPRHP ---
- History of Present Illness Chief Complaint: AICD Shock History of Present Illness: Pt is a 64 yo M who over exerted himself and "paid the flores". He was pushing a laundry hamper. He got shocked 5 times. 30s between the first 2 and then a minute between the next couple. It spanned 10 minutes. He says he does not usually exert himself that much. His son was with him at the time. He says he has had head and chest pain. He also experienced lightheadedness. He is still experiencing the pain although it is not as severe as it was before. He says the nitro alleviated some of the circulation issues and lightheadedness. This is the first time this has occurred. ED Course: In the ED patient's AICD was interrogated and revealed atrial tachycardia. Lopressor 5 mg given, fluids. In the emergency department she was atrial paced at 130's. - Allergies/Adverse Reactions Allergies Allergy/AdvReac Type Severity Reaction Status Date / Time Tetracyclines Allergy Severe Verified 08/04/18 18:43 NSAIDS (Non-Steroidal Allergy Unknown Verified 08/04/18 18:43 Anti-Inflamma sulfamethoxazole Allergy Unknown Verified 08/04/18 18:43 [From Bactrim] trimethoprim [From Bactrim] Allergy Unknown Verified 08/04/18 18:43 - Home Medications Medication Instructions Recorded Confirmed Type Atorvastatin Calcium [Lipitor] 40 mg PO DAILY 08/04/18 08/04/18 History DULoxetine HCl 60 mg PO DAILY 08/04/18 08/04/18 History Enalapril Maleate 2.5 mg PO DAILY 08/04/18 08/04/18 History Furosemide [Lasix] 20 mg PO DAILY 08/04/18 08/04/18 History Metoprolol Tartrate 50 mg PO BID 08/04/18 08/04/18 History NIFEdipine [Nifedipine ER] 60 mg PO DAILY 08/04/18 08/04/18 History Sertraline HCl 25 mg PO DAILY 08/04/18 08/04/18 History Tamsulosin HCl [Flomax] 2 cap PO DAILY 08/04/18 08/04/18 History levETIRAcetam [Keppra] 1,000 mg PO BID 08/04/18 08/04/18 History Baclofen [Lioresal] 10 mg PO BID #30 tab 08/05/18 Rx Insulin Glargine [Lantus Vial] 60 units SC HS vial 08/05/18 Rx Ondansetron [Zofran ODT] 4 mg PO Q6H PRN #10 tab 08/05/18 Rx traMADol HCl [Ultram] 50 mg PO Q6H PRN tab 08/05/18 Rx traMADol HCl [Ultram] 100 mg PO Q6H PRN tab 08/05/18 Rx Carvedilol [Coreg] 12.5 mg PO BID #60 tab 09/08/19 Rx - History PMHx: PA, 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 He smoked 43 years. The most was a pack day. No alcohol use. No drug use since 1974. 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 denies: cough , congestion Cardiovascular: reports: chest pain. denies: palpitation, edema Gastrointestinal: denies: nausea, vomiting, diarrhea, constipation Genitourinary: denies: dysuria, polyuria Skin: denies: rashes, lesions Musculoskeletal: reports: pain, tenderness Neurological: reports: weakness. denies: numbness, syncope Psychological: denies: anxiety, depression - Vital signs BP: 160/117 HR: 102 RR: 20 Tmax: 98.1 Pox: 98% on RA Wt: 82.5 kg - Physical Exam Constitutional: NAD, awake, alert and oriented HEENT: PERRLA, EOMI Neck: trachea midline, no JVD Chest: no-tender to palpation, no lesions Heart: normal S1/S2, pulses present Lungs: CTAB -Lungs: decreased air movement Abdomen: soft, bowel sounds present Musculoskeletal: normal tone, ROM grossly normal Neurological: no focal deficit, CN II-XII intact Skin: capillary refill <2 seconds, no jaundice Heme/Lymphatic: no purpura, no petechia Psychiatric: normal mood and affect, good judgment and insight FMR H&P: Results - Labs Result Diagrams: 09/08/19 08:36 09/08/19 08:36 Lab results: WBC 12.9 thou/uL (4.8-10.8) H 09/08/19 08:36 Hgb 17.0 g/dL (14.0-18.0) 09/08/19 08:36 Hct 50.4 % (42.0-52.0) 09/08/19 08:36 MCV 90.5 fL (78.0-98.0) 09/08/19 08:36 Plt Count 268 thou/uL (130-400) 09/08/19 08:36 Neutrophils % 65.3 % (42.0-75.0) 09/08/19 08:36 Sodium 137 mmol/L (136-145) 09/08/19 08:36 Potassium 3.1 mmol/L (3.5-5.1) L 09/08/19 08:36 Chloride 98 mmol/L (98-107) 09/08/19 08:36 Carbon Dioxide 27 mmol/L (23-31) 09/08/19 08:36 BUN 14 mg/dL (8.4-25.7) 09/08/19 08:36 Creatinine 1.60 mg/dL (0.7-1.3) H 09/08/19 08:36 Glucose 317 mg/dL (80-115) H 09/08/19 08:36 Calcium 9.5 mg/dL (7.8-10.44) 09/08/19 08:36 Total Bilirubin 0.6 mg/dL (0.2-1.2) 09/08/19 08:36 AST 29 U/L (5-34) 09/08/19 08:36 ALT 30 U/L (8-55) 09/08/19 08:36 Alkaline Phosphatase 109 U/L (40-110) 09/08/19 08:36 Creatine Kinase 107 U/L (30-200) 09/08/19 08:36 CK-MB (CK-2) 5.8 ng/mL (0-6.6) 09/08/19 08:36 Serum Total Protein 8.0 g/dL (5.8-8.1) 09/08/19 08:36 Albumin 4.4 g/dL (3.4-4.8) 09/08/19 08:36 Lipase 50 U/L (8-78) 09/08/19 08:36 - EKG Interpretation EKG: Atrial paced rhythm with prolonged AV conduction, Rate 82 - Radiology Interpretation Chest x-ray Status: image reviewed by me, report reviewed by me Additional comment: No acute abnormalities, heart size normal FMR H&P: A/P - Problem List (1) Chest pain Current Visit: No Status: Acute Code(s): R07.9 - CHEST PAIN, UNSPECIFIED Qualifiers: Chest pain type: unspecified Qualified Code(s): R07.9 - Chest pain, unspecified (2) GERD (gastroesophageal reflux disease) Current Visit: No Status: Chronic Code(s): K21.9 - GASTRO-ESOPHAGEAL REFLUX DISEASE WITHOUT ESOPHAGITIS Qualifiers: Esophagitis presence: without esophagitis Qualified Code(s): K21.9 - Gastro -esophageal reflux disease without esophagitis (3) HTN (hypertension) Current Visit: No Status: Chronic Code(s): I10 - ESSENTIAL (PRIMARY) HYPERTENSION Qualifiers: Hypertension type: essential hypertension Qualified Code(s): I10 - Essential (primary) hypertension (4) CKD (chronic kidney disease) stage 2, GFR 60-89 ml/min Current Visit: No Status: Acute Code(s): N18.2 - CHRONIC KIDNEY DISEASE, STAGE 2 (MILD) (5) COPD (chronic obstructive pulmonary disease) Current Visit: No Status: Acute Qualifiers: COPD type: chronic bronchitis Chronic bronchitis type: unspecified Qualified Code(s): J42 - Unspecified chronic bronchitis (6) CAD (coronary artery disease) Current Visit: No Status: Chronic Code(s): I25.10 - ATHSCL HEART DISEASE OF [place] CORONARY ARTERY W/O ANG PCTRS Qualifiers: Coronary Disease-Associated Artery/Lesion type: [place] artery [place] vs. transplanted heart: [place] heart Associated angina: angina presence unspecified Qualified Code(s): I25.10 - Atherosclerotic heart disease of [place] coronary artery without angina pectoris (7) DM type 2 (diabetes mellitus, type 2) Current Visit: No Status: Chronic Qualifiers: Diabetes mellitus senior care insulin use: with general accountant use Diabetes mellitus complication status: with unspecified complications (8) Dyslipidemia Current Visit: No Status: Chronic Code(s): E78.5 - HYPERLIPIDEMIA, UNSPECIFIED - Plan Pt is a 64 yo male here for dysrhythmia resulting in a shock from his AICD: # Dysrhythmia - consulted cardiology, Dr. Hurtado. - Currently atrial paced with regular rate - Denies current chest pain - trend trops - initial 0.115 # Elevated Trop - trend # ANTONY - no nephrotoxic agents - fluids - monitor # Hypokalemia - replete # Combined Diastolic/Systolic Heart Failure - continue home meds # DM Insulin Dependent w/ neuropathy - continue home meds - sliding scale insulin initiated # HLD - continue home meds # COPD - continue home meds # HTN - continue home meds # OA # BPH - continue home meds # Anxiety - continue home meds # Tobacco Abuse - encourage cessation - patch Fluids: LR 125 mls/hr VTE: none Diet: HH, Low Sodium Code: DNR Dispo: admit to tele with > 48 hr stay FMR H&P: Upper Level - Pertinent history 64 y/o M PMHx DM2, HTN, HLD, CAD s/p PA with 1 stent, COPD, and tobacco abuse presents to the ED after getting shocked by his AICD 5 times. The patient reports that he was trying to push a laundry basket, which is more than he normally exerts himself and he started getting short of breath and then got shocked 5 times about 1-3 min apart each time. He reports chest pain and headache that happened after the shocks. 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 He has an AICD/pacemaker in place that he had replaced a few years back because his first one had been in 10 years. AICD was interrogated by ED and they found atrial tach. - Pertinent findings PE: Gen - alert, oriented, NAD Resp - no respiratory distress Ext - no cyanosis or edema Labs: WBC 12.9, K 3.1, trop 0.115, Cr 1.60 - Plan Date/Time: 09/08/19 0957 I, Becky Lorenzo MD, PGY-3, have evaluated this patient and agree with findings/ plan as outlined by audit practice intern resident. Pertinent changes/additions are listed here. Atrial Arrythmia s/p AICD defibrillation -Will consult Dr. Hurtado with cardiology, appreciate recs -Initial trop indeterminate, will trend -Monitor on telemetry -Monitor electrolytes Elevated troponin Trop 0.115 and pt has h/o PA with 1 stent placed -Trend trops ANTONY -Will give fluids and monitor -Avoid nephrotoxic agents Hypokalemia Initial K 3.1 -Replete and monitor h/o Hemorrhage CVA Would be hesitant to put on anticoagulation at this time, will follow cards recs regarding this DM2 -SSI -Continue home meds -Accuchecks ACHS HTN -Continue home meds Tobacco Abuse -Encourage cessation COPD -Continue home meds, no signs of exacerbation at this time Dispo: Admit to tele LOS: Likely 2 days
[2019-09-08] MEDS ORDERED: Aspirin Chewable 81 MG TAB ONE (10:05)
[2019-09-08] MEDS ORDERED: Potassium Chloride 20 MEQ in Lactated Ringer's 1,000 ML IV SCH (11:31)
[2019-09-08] MEDS ORDERED: Insulin Regular 300 UNITS/3 ML VIAL SC PRN (12:14)
[2019-09-08] MEDS ORDERED: Dextrose 50% Abboject 50 ML SYRINGE SLOW IVP PRN (12:14)
[2019-09-08] MEDS ORDERED: HumaLOG 300 UNITS/3 ML VIAL SC PRN ×3 (12:14→14:04)
[2019-09-08] MEDS ORDERED: Dextrose 5% in Water 1,000 ML IV PRN (12:14)
[2019-09-08 12:42] LABS: Troponin I 0.416 ng/mL (< 0.028)
[2019-09-08 12:46] LABS: Magnesium 1.7 mg/dL (1.6-2.6); Phosphorus 2.7 mg/dL (2.3-4.7)
[2019-09-08] MEDS ORDERED: Nicotine 14 MG PATCH TD SCH (13:00)
[2019-09-08] MEDS ORDERED: Enoxaparin Sodium 80 MG/0.8 ML SYRINGE SC SCH ×3 (13:03→21:00)
[2019-09-08] MEDS ORDERED: Metoprolol Tartrate 5 MG/5 ML VIAL IVP SCH (13:10)
[2019-09-08] MEDS ORDERED: Enoxaparin Sodium 80 MG/0.8 ML SYRINGE ONE (14:36)
[2019-09-08 15:06] LABS: Troponin I 0.535 ng/mL (< 0.028)
[2019-09-08] MEDS ORDERED: Carvedilol 6.25 MG TAB PO SCH (21:00)
--- NOTE | 2019-09-12 11:02 | CON ---
DATE OF CONSULTATION: Dictated by Shirley Dave PA-C, as scribe for Dr. Shin Villeda. REASON FOR CONSULTATION: ICD discharge and device management. PHYSICIAN CONSULTED: Shin Villeda MD. HISTORY OF PRESENT ILLNESS: Mr. Valdez is a 64-year-old gentleman, well known to our practice for history of ventricular and atrial arrhythmias with inclusion of a dual-chamber ICD. He has had low-burden atrial fibrillation, which he is asymptomatic. Given his history of multiple intracranial hemorrhages, he is not a candidate for oral anticoagulation. He also has a history of monomorphic ventricular tachycardia that has been responsive to ATP therapies in the past, but largely quiescent. He is on beta-ann therapy alone, although antiarrhythmic therapy with sotalol was entertained at the last visit, but the patient did decline this option. Mr. Valdez presents to the emergency room at [facility] after an AICD discharge. He was doing laundry with his son and was pushing a laundry hamper when he reports he was shocked repeatedly, 5 times. He reports he usually does not exert himself that much. Subsequently, he had head pain and chest pain with lightheadedness. His AICD was interrogated, showing sinus tachycardia, and IV Lopressor 5 mg was given, which was very effective in gradually reducing his heart rate to normal ranges. EP consultation is requested given the ICD discharge. Mr. aVldez denies any current heart racing, palpitations, chest pain, pressure, syncope, near syncope, stroke, or stroke-like symptoms. REVIEW OF SYSTEMS: Positive for recent ICD discharges, recent chest pain that is not ongoing, recent lightheadedness that has resolved. PAST MEDICAL HISTORY: 1. Coronary artery disease status post myocardial infarction and PCI. 2. Ischemic cardiomyopathy, ejection fraction 45%. 3. Monomorphic ventricular tachycardia, responsive to ATP therapies. 4. Dual-chamber ICD, [employer], status post generator change on 09/23/2018. 5. Hypertension, severe and poorly controlled, difficult to control with medications. 6. Type 2 diabetes. 7. Dyslipidemia. 8. Bipolar disorder. 9. Seizure disorder. 10. Multiple intracranial hemorrhages/hemorrhagic strokes, total of 8 per the patient. 11. Paroxysmal atrial fibrillation, low burden. ALLERGIES: BACTRIM, NSAIDS, AND TETRACYCLINE. MEDICATIONS: Home medications per our office note include: 1. Clonazepam 1 mg as needed. 2. Clonidine 0.3 mg p.o. b.i.d. 3. Enalapril 20 mg p.o. b.i.d. 4. Potassium daily. 5. Nifedipine 30 mg daily. 6. Metoprolol tartrate 50 mg b.i.d. 7. Furosemide 40 mg daily. 8. Keppra 1000 mg b.i.d. 9. Aspirin 81 mg daily. 10. Tamsulosin 0.4 mg daily. 11. Symbicort two puffs b.i.d. 12. Lantus as directed. 13. Tramadol 50 mg p.o. p.r.n. 14. Duloxetine 60 mg daily. 15. Zofran as needed. 16. Sertraline 25 mg daily. 17. Amitriptyline 25 mg nightly. OBJECTIVE: VITAL SIGNS: A paced V sensed sinus rhythm with controlled heart rates, narrow QRS, occasional PVCs are seen. Blood pressure is stable. Vital sign documentation per ER records. EKG shows A paced, V sensed sinus rhythm with PVCs. DEVICE CHECK: This is a [employer] Fort[employer]ura dual-chamber ICD, status post generator change on 09/23/2018. Lead parameters are stable. Underlying rhythm is currently sinus rhythm, atrial pacing, ventricular sensing. Recent sinus tachycardia that was quite rapid falling in the VT zone is seen. There was ventricular ectopy throughout this episode, that met the VF discriminators triggering the AICD discharge. There was no ventricular tachycardia. Atrial fibrillation burden is less than 1%. The ventricular fibrillation zone rate was increased to 240 to prevent further AICD discharges from his fast sinus rhythm/atrial tachycardia. IMPRESSION: 1. Recent automatic implantable cardioverter-defibrillator discharge. 2. Sinus tachycardia/atrial tachycardia, the patient had not been taking his beta blockers for approximately 3 weeks. 3. Hypertension, poorly controlled. 4. History of multiple hemorrhagic strokes. 5. Premature ventricular complexes. 6. Atrial fibrillation, low burden, currently quiescent. 7. Dual-chamber implantable cardiac defibrillator. PLAN AND RECOMMENDATIONS: Mr. Valdez unfortunately had run out of his beta-ann therapy, metoprolol, approximately 3 weeks ago. As a result, we do see that he was experiencing sinus tachycardia/atrial tachycardia, that in conjunction with his ventricular ectopy met the criteria for his VF zone discriminators with his ICD and he did receive an ICD discharge for this. I have had his VF zone adjusted to 240 beats per minute to prevent additional ICD discharges should he get this fast again, but largely he needs to resume his beta-ann therapy and not miss any more doses. He also continues to struggle with poorly controlled hypertension, which is an ongoing issue for him. He has a long-time history of smoking greater than 42 years, currently smoking 5 cigarettes a day and likely has COPD, though no formal diagnosis by our records. I will switch him to Coreg 12.5 mg p.o. b.i.d., but he will likely require 25 mg b.i.d. His lungs may tolerate this therapy a bit better than metoprolol. This was discussed at length with José Miguel, and he understands the importance of this medication. At this point, no atrial or ventricular arrhythmias are an ongoing issue, so will refrain from antiarrhythmic therapy. Consideration for sotalol therapy has been given in the past, but there is no indication for that today. I will see him back in 6 weeks or sooner if symptoms dictate. He does have a home monitor for his ICD in place. Thank you for allowing us to participate in the care of this patient. Job ID: [id number]
--- NOTE | 2019-09-23 11:25 | EKG ---
Test Reason : Blood Pressure : / mmHG Vent. Rate : 134 BPM Atrial Rate : 134 BPM P-R Int : 000 ms QRS Dur : 088 ms QT Int : 350 ms P-R-T Axes : 000 013 086 degrees QTc Int : 522 ms Sinus tachycardia Anteroseptal infarct , age undetermined Abnormal ECG Confirmed by ESTRELLA HUMMEL DO ([id number]), writer editor JOANA BALDERAS ([id number]) on 09/23/2019 11:24:50 AM Referred By: Confirmed By:ESTRELLA HUMMEL DO
--- NOTE | 2019-09-23 11:25 | EKG ---
Test Reason : Blood Pressure : / mmHG Vent. Rate : 082 BPM Atrial Rate : 082 BPM P-R Int : 212 ms QRS Dur : 102 ms QT Int : 404 ms P-R-T Axes : -25 -08 052 degrees QTc Int : 472 ms Atrial-paced rhythm with prolonged AV conduction Minimal voltage criteria for LVH, may be normal variant Inferior infarct , age undetermined Cannot rule out Anterior infarct , age undetermined Abnormal ECG Confirmed by ESTRELLA HUMMEL DO ([id number]), assignment desk editor JOANA BALDERAS ([id number]) on 09/23/2019 11:25:12 AM Referred By: Confirmed By:ESTRELLA HUMMEL DO
== END 2019-09-08 15:27 | disposition home or self-care (01) ==
LOC: ERS 08:15 → ERHOLD 09:59 → INTOOBSV 10:18 → OBSVTOIN 10:18 → INTOOBSV 14:52
PROVIDERS: ADMIT Family Medicine; ATTEND Family Medicine
DX: I47.1 Supraventricular tachycardia (principal); I13.0 Hypertensive heart and chronic kidney disease with heart failure and stage 1 through stage 4 chronic kidney disease, or unspecified chronic kidney disease; E11.40 Type 2 diabetes mellitus with diabetic neuropathy, unspecified; E11.22 Type 2 diabetes mellitus with diabetic chronic kidney disease; I50.42 Chronic combined systolic (congestive) and diastolic (congestive) heart failure; N18.3 Chronic kidney disease, stage 3 (moderate); N17.9 Acute kidney failure, unspecified; G40.909 Epilepsy, unspecified, not intractable, without status epilepticus; F41.9 Anxiety disorder, unspecified; E78.5 Hyperlipidemia, unspecified; I25.2 Old myocardial infarction; F43.10 Post-traumatic stress disorder, unspecified; F17.210 Nicotine dependence, cigarettes, uncomplicated; J44.9 Chronic obstructive pulmonary disease, unspecified; K21.9 Gastro-esophageal reflux disease without esophagitis; I25.10 Atherosclerotic heart disease of native coronary artery without angina pectoris; E87.6 Hypokalemia; M19.90 Unspecified osteoarthritis, unspecified site; N40.0 Benign prostatic hyperplasia without lower urinary tract symptoms; Z79.4 Long term (current) use of insulin; Z79.899 Other long term (current) drug therapy; Z86.73 Personal history of transient ischemic attack (TIA), and cerebral infarction without residual deficits; Z88.1 Allergy status to other antibiotic agents; Z88.2 Allergy status to sulfonamides; Z88.6 Allergy status to analgesic agent; Z95.1 Presence of aortocoronary bypass graft; Z95.810 Presence of automatic (implantable) cardiac defibrillator; Z66 Do not resuscitate
CPT/HCPCS: 36415; 71045; 80053; 82550; 82553; 83690; 83735; 84100; 84484; 85025; 93005; 96374; J1650; J3480; J7120

== ENCOUNTER 2020-01-15 11:33 | Inpatient (IN) | payer MEDICARE, MEDICAID, OTHER ==
--- NOTE | 2020-01-15 12:42 | RAD ---
Chest AP view INDICATION: History of shortness of breath COMPARISON: Prior exam dated September 08, 2019 FINDINGS: Lungs: There is new airspace opacities seen involving the region of the left lower lobe and lingula suspicious for pneumonia. This is superimposed on mild/moderate emphysema. Cardiac silhouette: There is mild cardiac megaly Pulmonary vasculature: Normal Pleural spaces: No pleural effusion or pneumothorax is demonstrated. Upper abdomen: No abnormality seen. Osseous structures: No acute osseous abnormality. Additional findings: Dual-lead AICD is unchanged. IMPRESSION: New airspace opacity in the left lower lobe and lingula suspicious for pneumonia. Recommend radiograp hic follow-up to resolution.
[2020-01-15 12:45] LABS: #Basophils 0.1 thou/uL (0.0-0.2); #Eosinphils 0.7 thou/uL (0.0-0.7); #Lymphocytes 3.7 thou/uL (1.20-3.40); #Monocytes 1.4 thou/uL (0.11-0.59); #Neutrophils 11.3 thou/uL (1.40-6.50); %Basophils 0.7 % (0.0-1.0); %Eosinophils 3.9 % (0.0-10.0); %Lymphocytes 21.6 % (21.0-51.0); %Monocytes 8.3 % (0.0-10.0); %Neutrophils 65.4 % (42.0-75.0); Hemoglobin 16.2 g/dL (14.0-18.0); Mean Corpuscular HGB CONC 33.4 g/dL (32.0-36.0); Mean Corpuscular Hemoglobin 30.4 pg (27.0-31.0); Mean Platelet Volume 6.6 fL (7.4-10.4); Platelet Count 363 thou/uL (130-400); RBC Distribution Width 12.7 % (11.5-14.5); Red Blood Cell (RBC) Count 5.33 mill/uL (4.70-6.10); White Blood Cell (WBC) Count 17.3 thou/uL (4.8-10.8)
[2020-01-15 13:07] LABS: ALT (SGPT) 25 U/L (8-55); AST (SGOT) 28 U/L (5-34); Albumin 3.9 g/dL (3.4-4.8); Alkaline Phosphatase 127 U/L (40-110); Anion Gap 13 mmol/L (10-20); BUN (Urea Nitrogen) 16 mg/dL (8.4-25.7); Bilirubin, Total 0.3 mg/dL (0.2-1.2); Calc. Creatinine Clearance 0 mL/min (70-130); Calcium 9.3 mg/dL (7.8-10.44); Carbon Dioxide 27 mmol/L (23-31); Chloride 102 mmol/L (98-107); Estimated GFR-MDRD 59; Globulin 3.9 g/dL (2.4-3.5); Glucose 158 mg/dL (80-115); Potassium 3.4 mmol/L (3.5-5.1); Protein, Total 7.8 g/dL (5.8-8.1); Sodium 139 mmol/L (136-145)
[2020-01-15 13:12] LABS: CKMB 2.7 ng/mL (0-6.6)
[2020-01-15] MEDS ORDERED: Azithromycin 500 MG VIAL ONE (13:58)
[2020-01-15] MEDS ORDERED: cefTRIAXone\\ROCEPHIN 1 GM VIAL ONE (13:58)
[2020-01-15] MEDS ORDERED: Aspirin Chewable 81 MG TAB ONE (13:58)
--- NOTE | 2020-01-15 14:47 | PDOC.FPRHP ---
- History of Present Illness Chief Complaint: Shortness of Breath History of Present Illness: 64 yo male PMHX, DMII, CAD, HFrEF, AICD, COPD, Anxiety, tobacco use, presents with shortness of breath x 2 weeks accompanied by productive cough. Patients states he passes out sometimes from coughing or when he is smoking. Sometimes he feels dizzy and nauseous before passing out but sometimes not. His son had an exposure to a [employer] that was COVID positive. Denies fever, chills, diarrhea. Patient notes he smokes 8 cigarettes a day, takes all of his medications regularly and is not on home O2. ED Course: COVID swabbed, got 500 azithromycin, 1g ceftriaxone, 1L NS - Allergies/Adverse Reactions Allergies Allergy/AdvReac Type Severity Reaction Status Date / Time Tetracyclines Allergy Severe Verified 10/06/19 22:27 NSAIDS (Non-Steroidal Allergy Unknown Verified 10/06/19 22:27 Anti-Inflamma sulfamethoxazole Allergy Unknown Verified 10/06/19 22:27 [From Bactrim] trimethoprim [From Bactrim] Allergy Unknown Verified 10/06/19 22:27 - Home Medications Medication Instructions Recorded Confirmed Type levETIRAcetam [Keppra] 1,000 mg PO BID 08/04/18 01/15/20 History traMADol HCl [Ultram] 50 mg PO Q6H PRN tab 08/05/18 01/15/20 Rx Carvedilol [Coreg] 12.5 mg PO BID #60 tab 09/08/19 01/15/20 Rx Amitriptyline HCl 50 mg PO HS 01/15/20 01/15/20 History Aspirin [Lo-Dose Aspirin EC] 81 mg PO QAM 01/15/20 01/15/20 History Atorvastatin Calcium 80 mg PO HS 01/15/20 01/15/20 History Enalapril Maleate 20 mg PO BID 01/15/20 01/15/20 History Escitalopram Oxalate 20 mg PO QAM 01/15/20 01/15/20 History Furosemide 40 mg PO DAILY 01/15/20 01/15/20 History Insulin Glargine,Hum.Rec.Anlog 42 units SQ BID 01/15/20 01/15/20 History [Lantus] NIFEdipine [Nifedipine ER] 90 mg PO QAM 01/15/20 01/15/20 History cloNIDine HCl 0.3 mg PO QAM 01/15/20 01/15/20 History clonazePAM [Klonopin] 1 mg PO BID PRN 01/15/20 01/15/20 History - History PMHx: DMII, Anxiety, HTN, COPD, CKD Stage III, Afib, Pacemaker PSHx: abdominal sugery 08/2019, pacemaker 08/2019 FHx: no family history Social:Lives with two sons at home. Smokes 8 cigarettes a day, denies alcohol or drugs. - Review of Systems General: denies: fever/chills, night sweats Eyes: denies: eye pain, vision changes ENT: denies: nasal congestion, rhinorrhea Respiratory: reports: cough, congestion, shortness of breath, exercise intolerance Cardiovascular: denies: chest pain, palpitation, edema Gastrointestinal: denies: nausea, vomiting, diarrhea, abdominal pain Skin: denies: rashes, lesions Musculoskeletal: denies: pain, swelling Neurological: reports: syncope. denies: seizure, weakness - Vital signs BP: 127/60 HR: 71 RR: 20 Tmax: 97.9 Pox: 96% on RA Wt: 68kg - Physical Exam Constitutional: NAD, awake, alert and oriented, well developed HEENT: normocephalic and atraumatic, PERRLA, conjunctiva clear, no scleral icterus, grossly normal hearing Neck: supple Heart: RRR Lungs: no respiratory distress, other (diminished breath sounds left lower lung) Abdomen: soft, non-tender Musculoskeletal: normal structure, normal tone Neurological: no focal deficit Skin: no rash/lesions, good turgor Heme/Lymphatic: no unusual bruising or bleeding Psychiatric: normal mood and affect, good judgment and insight, intact recent and remote memory FMR H&P: Results - Labs Result Diagrams: 01/15/20 12:35 01/15/20 12:35 Lab results: WBC 17.3 thou/uL (4.8-10.8) H 01/15/20 12:35 Hgb 16.2 g/dL (14.0-18.0) 01/15/20 12:35 Hct 48.5 % (42.0-52.0) 01/15/20 12:35 MCV 91.0 fL (78.0-98.0) 01/15/20 12:35 Plt Count 363 thou/uL (130-400) 01/15/20 12:35 Neutrophils % 65.4 % (42.0-75.0) 01/15/20 12:35 Sodium 139 mmol/L (136-145) 01/15/20 12:35 Potassium 3.4 mmol/L (3.5-5.1) L 01/15/20 12:35 Chloride 102 mmol/L (98-107) 01/15/20 12:35 Carbon Dioxide 27 mmol/L (23-31) 01/15/20 12:35 BUN 16 mg/dL (8.4-25.7) 01/15/20 12:35 Creatinine 1.23 mg/dL (0.7-1.3) 01/15/20 12:35 Glucose 158 mg/dL (80-115) H 01/15/20 12:35 Lactic Acid 1.4 mmol/L (0.5-2.2) 01/15/20 12:35 Calcium 9.3 mg/dL (7.8-10.44) 01/15/20 12:35 Total Bilirubin 0.3 mg/dL (0.2-1.2) 01/15/20 12:35 AST 28 U/L (5-34) 01/15/20 12:35 ALT 25 U/L (8-55) 01/15/20 12:35 Alkaline Phosphatase 127 U/L (40-110) H 01/15/20 12:35 CK-MB (CK-2) 2.7 ng/mL (0-6.6) 01/15/20 12:35 B-Natriuretic Peptide 97.0 pg/mL (0-100) 01/15/20 12:35 Serum Total Protein 7.8 g/dL (5.8-8.1) 01/15/20 12:35 Albumin 3.9 g/dL (3.4-4.8) 01/15/20 12:35 - EKG Interpretation EKG: atrial paced rhythm at 77bpm - Radiology Interpretation Chest x-ray Status: image reviewed by me, report reviewed by me Additional comment: new LLL opacity FMR H&P: A/P - Plan Pneumonia (Community Acquired) CXR revealed LLL Pneumonia.WBC 17.3. - started on ceftriaxone and azithromycin - procal and CRP ordered - Ustrep, Ulegionella pending COVID PUI possible exposure through son who works at the hospital and had exposure to fellow metallurgical laboratory assistant - duonebs q4hr - covered with azithromycin Syncope - vasovagal vs orthostatic vs cardiac - EKG: atrial paced rhythm at 77bpm - Hx chronic afib on carvedilol - echo ordered, last one Jul 2018 normal EF diastolic d/f - monitor on tele COPD -O2 sats 96% on admission, started on 1L O2 in the ED, have stopped -continue symbicort, pharmacy to dose - if no improvement on Abx, will consider startin steroids HFrEF, POA not in exacerbation - echo as above - patient has AICD - daily weights, strict I/Os, fluid restriction DMII last a1c 9.5 in 08/2018 - continued on home lantus - ACHS accu checks - severe sliding scale insulin - CC diet CKD stage 3 - BUN/ CR - - will continue to monitor Hx Chronic AFib EKG paced - continue carvedilol Tobacco Use Disorder - will continue discuss smoking cessation with patient COde status: full code DVT prophylaxis: lovenox Dispo: admit to tele inpatient; LOS >48hr PCP: Dr. Lee ([facility]) Case discussed with Dr. Donohue who has seen and evaluated the patient. FMR H&P: Upper Level - Pertinent history 64yo male with pmh of HFrEF w/ AICD, DMII, COPD, CAD presents with SOB and cough that has been progressively worsening over he last 2 weeks. Denies fever, chills, diarrhea, loss of smell/taste. No sick contacts. Has been taking medications daily as directed. Reports increased sputum production and dyspnea that worsens with exertion. Denies edema and orthopnea. Reports he has had 61 episodes of syncope over the last 2 weeks. It happens mostly when he is coughing but sometimes he is not. At times he can tell it is about to happen and he will go sit down. No hx of this happening in the past per patient. PE: General: NAD CV: RRR Pulm: diminished breath sounds in LLL, otherwise clear with no wheezing. No respiratory distress Extremities: No edema A/P: CAP -CXR with LLL infiltrates. Afebrile. COVID swab checked in ED. Will check procal , CRP, urine strep and legionella. Continue Ceftriaxone and Azithromycin. Mucinex and Tylenol PRN. Admit to tele due to syncope episodes. Syncope -Likely vasovagal based on history. Called Dr Kay office to verify last echo and stress test. Last Echo In [facility] 07/2018 with nml EF, diastolic dysfunction. Monitor on tele. Will order Echo. COPD -Will schedule q4h duonebs. Does not appear to be in acute exacerbation, can consider starting steroids if no improvement with Abx. See internet salesperson H&P for chronic medical problems - Plan Date/Time: 01/15/20 0055 I, Renu Knox, have evaluated this patient and agree with findings/plan as outlined by internet salesperson resident. Pertinent changes/additions are listed here. Addendum - Attending - Attending Attestation Date/Time: 01/15/202017 I personally evaluated the patient and discussed the management with Dr. An/ Abilio. I agree with the History, Examination, Assessment and Plan documented above with any addition or exceptions noted below. hx consistent with vasovagal syncope as events only occur with deep inspiration and coughing episodes. He had elevated pulmonary artery pressure on his last echo in 07/2018. He is also on a large dose of nifedipine and clonidine in addition to his beta ann and lasix. I suspect his episodes are caused by decreased CV return due to increased intrathoracic pressure when he valsalvas and it is further exacerbated by his medication and pHTN. Repeat TTE. Hold procardia and clonidine. continue HF meds. Labs unremarkable. CXR concerning for lingula infiltrate so now COVID PUI. Trend trop for ACS cause and NM stress tomorrow. Dx: - Syncope 2/2 vasovagal episodes/pHTN/iatrogenic - ACS r/o - COVID r/o Obs, Tele, <2 midnights.
[2020-01-15 21:43] LABS: Troponin I 0.046 ng/mL (< 0.028)
[2020-01-15] MEDS ORDERED: Sodium Chloride 0.9% 1,000 ML IV SCH (23:05)
[2020-01-15] MEDS ORDERED: Ondansetron PF 4 MG/2 ML Vial IVP PRN (23:05)
[2020-01-15] MEDS ORDERED: Ondansetron ODT 4 MG TAB SL PRN (23:05)
[2020-01-15] MEDS ORDERED: Acetaminophen 325 MG TAB PO PRN ×2 (23:05→23:10)
[2020-01-15] MEDS ORDERED: clonazePAM 1 MG TAB PO PRN (23:10)
[2020-01-15] MEDS ORDERED: traMADol HCl 50 MG TAB PO PRN (23:10)
[2020-01-15] MEDS ORDERED: Nicotine 14 MG PATCH TD PRN (23:10)
[2020-01-15] MEDS ORDERED: Dextrose 50% Abboject 50 ML SYRINGE SLOW IVP PRN (23:10)
[2020-01-15] MEDS ORDERED: Dextrose 5% in Water 1,000 ML IV PRN (23:10)
[2020-01-15] MEDS ORDERED: HumaLOG 300 UNITS/3 ML VIAL SC PRN (23:10)
[2020-01-15] MEDS ORDERED: Atorvastatin Calcium 40 MG TAB PO SCH (23:30)
[2020-01-15] MEDS ORDERED: Carvedilol 6.25 MG TAB PO SCH (23:30)
[2020-01-15] MEDS ORDERED: Amitriptyline HCl 25 MG TAB PO SCH (23:30)
[2020-01-15] MEDS ORDERED: guaiFENesin/DM ER PO SCH (23:45)
[2020-01-15] MEDS ORDERED: Insulin Glargine 42 UNITS in Pre-Filled Syringe 1 EACH SC SCH (23:45)
[2020-01-15] MEDS ORDERED: Lisinopril 20 MG TAB PO SCH (23:45)
[2020-01-15] MEDS ORDERED: levETIRAcetam 500 MG TAB PO SCH (23:45)
[2020-01-15 23:55] VITALS: BMI 30.5
[2020-01-16 00:07] LABS: Troponin I 0.057 ng/mL (< 0.028)
[2020-01-16] MEDS: Albuterol 200 PUFF (6.7GM INHALER) INH SCH ×6 (04:56→22:48)
[2020-01-16 04:58] LABS: #Eosinphils 0.5 thou/uL (0.0-0.7); #Lymphocytes 2.8 thou/uL (1.20-3.40); #Monocytes 1.1 thou/uL (0.11-0.59); #Neutrophils 9.9 thou/uL (1.40-6.50); %Basophils 0.1 % (0.0-1.0); %Eosinophils 3.7 % (0.0-10.0); %Lymphocytes 19.6 % (21.0-51.0); %Monocytes 7.7 % (0.0-10.0); Mean Corpuscular HGB CONC 32.2 g/dL (32.0-36.0); Mean Corpuscular Hemoglobin 29.5 pg (27.0-31.0); Mean Corpuscular Volume 91.6 fL (78.0-98.0); Mean Platelet Volume 6.8 fL (7.4-10.4); Platelet Count 295 thou/uL (130-400); RBC Distribution Width 12.7 % (11.5-14.5); Red Blood Cell (RBC) Count 5.08 mill/uL (4.70-6.10); White Blood Cell (WBC) Count 14.3 thou/uL (4.8-10.8)
[2020-01-16 05:15] LABS: Anion Gap 12 mmol/L (10-20); BUN (Urea Nitrogen) 13 mg/dL (8.4-25.7); Calc. Creatinine Clearance 103 mL/min (70-130); Calcium 8.5 mg/dL (7.8-10.44); Carbon Dioxide 25 mmol/L (23-31); Chloride 106 mmol/L (98-107); Estimated GFR-MDRD 84; Glucose 86 mg/dL (80-115); Potassium 3.6 mmol/L (3.5-5.1); Sodium 139 mmol/L (136-145)
[2020-01-16] MEDS: Mometasone 100 MCG/Formoterol 5 MCG 120 PUFF INHALER INH SCH ×2 (07:02→20:43)
--- NOTE | 2020-01-16 07:47 | PDOC.FM ---
- Subjective Subjective: Patient feeling better this morning. Says he has had a productive cough for about 1 month and that he "always has a cough" since as long as he can remember which he attributes to smoking. Says his breathing feels improved today. Also feels less swollen. - Objective MAR Reviewed: Yes Vital Signs & Weight: Vital Signs (12 hours) Temp Pulse Resp BP BP BP BP 01/16/20 05:05 98.1 F 88 24 H 134/77 01/16/20 00:12 162/93 H 01/16/20 00:07 141/85 H 147/86 H 01/15/20 23:11 98.1 F 80 24 H 166/92 H 01/15/20 23:10 BP Pulse Ox 01/16/20 05:05 93 L 01/16/20 00:12 01/16/20 00:07 162/93 H 01/15/20 23:11 97 01/15/20 23:10 97 Weight Weight 83.007 kg I&O: 01/15/20 01/16/20 01/17/20 06:59 06:59 06:59 Intake Total 450 Balance 450 Result Diagrams: 01/16/20 04:17 01/16/20 04:17 Phys Exam - Physical Examination Constitutional: NAD HEENT: moist MMs Neck: supple, full ROM Respiratory: no wheezing, clear to auscultation bilateral Cardiovascular: RRR, no significant murmur Gastrointestinal: no distention Musculoskeletal: no edema, pulses present Neurological: normal sensation, moves all 4 limbs Psychiatric: normal affect, A&O x 3 Skin: no rash Dx/Plan (1) CAP (community acquired pneumonia) Code(s): J18.9 - PNEUMONIA, UNSPECIFIED ORGANISM Status: Acute Qualifiers: Laterality: left Lung location: lower lobe of lung Qualified Code(s): J18.9 - Pneumonia, unspecified organism (2) Syncopal episodes Code(s): R55 - SYNCOPE AND COLLAPSE Status: Acute Qualifiers: Syncope type: vasovagal syncope Qualified Code(s): R55 - Syncope and collapse - Plan Plan: Patient is a 64 yo male who presents with cough and possible COVID exposure: Pneumonia (Community Acquired) CXR revealed LLL Pneumonia.WBC 17.3. - started on ceftriaxone and azithromycin - procal and CRP negative - Ustrep, Ulegionella pending COVID PUI possible exposure through son who works at the hospital and had exposure to fellow cath lab radiological technologist - duonebs q4hr - covered with azithromycin Syncope - likely vasovagal vs cardiac -orthostatic ruled out with no sig. change in BP from sit to stand - EKG: atrial paced rhythm at 77bpm - Hx chronic afib on carvedilol - echo ordered, last one Jul 2018 normal EF diastolic d/f-will not be completed until COVID test results - monitor on tele COPD -O2 sats 96% on admission, started on 1L O2 in the ED, have stopped and has been stable on room air overnight -continue symbicort, pharmacy to dose - if no improvement on Abx, will consider starting steroids HFrEF, POA not in exacerbation - echo as above - patient has AICD - daily weights, strict I/Os, fluid restriction DMII last a1c 9.5 in 08/2018 - continued on home lantus - ACHS accu checks - severe sliding scale insulin - CC diet CKD stage 3 - BUN/ CR - - will continue to monitor Hx Chronic AFib EKG paced - continue carvedilol Tobacco Use Disorder - will continue discuss smoking cessation with patient COde status: full code DVT prophylaxis: lovenox Dispo: admit to tele inpatient; LOS >48hr PCP: Dr. Lee ([facility]) Dispo: Stable, admitted to inpatient on COVID unit. Continue to monitor respiratory status, await COVID results. Anticipate discharge in <48 hours. Addendum - Attending - Attending Attestation Date/Time: 01/16/20 [id number] I personally evaluated the patient and discussed the management with Dr. Morel I agree with the History, Examination, Assessment and Plan documented above with any addition or exceptions noted below - Patient without complaints; States that cough has improved. No further syncopal episodes. Afebrile VSS. A/P : 1) CAP - COVID negative; continue current abx. 2) Syncope- will obtain echo; held some home BP meds and will continue to monitor, 3) DM- BG stable; continue current meds.
[2020-01-16] MEDS: guaiFENesin/DM ER PO SCH ×2 (10:43→20:48)
[2020-01-16] MEDS: Enoxaparin Sodium 40 MG/0.4 ML SYRINGE SC SCH (10:43)
[2020-01-16] MEDS: Escitalopram Oxalate 20 mg Tablet PO SCH (10:43)
[2020-01-16] MEDS: Furosemide 40 MG TAB PO SCH (10:43)
[2020-01-16] MEDS: Insulin Glargine 42 UNITS in Pre-Filled Syringe 1 EACH SC SCH ×3 (10:44→21:30)
[2020-01-16] MEDS: NIFEdipine XL 90 MG TAB PO SCH (10:47)
[2020-01-16] MEDS: Carvedilol 6.25 MG TAB PO SCH ×2 (10:47→20:47)
[2020-01-16] MEDS: Aspirin 81 mg Enteric Coated Tablet PO SCH (10:47)
[2020-01-16] MEDS: Lisinopril 20 MG TAB PO SCH ×2 (10:48→20:48)
[2020-01-16] MEDS: levETIRAcetam 500 MG TAB PO SCH ×2 (10:48→20:49)
[2020-01-16 12:25] LABS: SARS-CoV-2 MS2 Positive; SARS-CoV-2 N Gene Negative; SARS-CoV-2 S Gene Negative; SARS-CoV-2 orf1ab Negative
[2020-01-16 20:14] LABS: Legionella Urinary Ag Negative (Negative); Strep pneumo Urine Ag NEGATIVE (NEGATIVE)
[2020-01-16] MEDS ORDERED: cefTRIAXone\\ROCEPHIN 1 GM in Sodium Chloride 0.9% 100 ML IVPB SCH (21:00)
[2020-01-16] MEDS ORDERED: Atorvastatin Calcium 40 MG TAB PO SCH (21:00)
[2020-01-16] MEDS ORDERED: Amitriptyline HCl 25 MG TAB PO SCH (21:00)
[2020-01-16] MEDS ORDERED: Azithromycin 500 MG in Sodium Chloride 0.9% 250 ML 250 ML IVPB SCH (21:00)
[2020-01-17] MEDS: Albuterol 200 PUFF (6.7GM INHALER) INH SCH ×3 (02:56→11:05)
--- NOTE | 2020-01-17 06:21 | PDOC.FM ---
- Subjective Subjective: Patient reports that breathing is back to his baseline. He endorses mild nasal congestion and fatigue but otherwise feels back to baseline. He denies chest pain, NVD. - Objective MAR Reviewed: Yes Vital Signs & Weight: Vital Signs (12 hours) Temp Pulse Resp BP Pulse Ox 01/17/20 03:45 96.5 F L 87 18 132/84 93 L 01/16/20 20:45 92 L 01/16/20 19:52 97.6 F 88 18 127/78 92 L Weight Weight 83.416 kg I&O: 01/15/20 01/16/20 01/17/20 06:59 06:59 06:59 Intake Total 450 0 Output Total 350 Balance 450 -350 Result Diagrams: 01/16/20 04:17 01/16/20 04:17 Phys Exam - Physical Examination Constitutional: NAD HEENT: PERRLA, sclera anicteric Neck: no JVD, full ROM Respiratory: no wheezing, clear to auscultation bilateral Cardiovascular: RRR, no significant murmur, no rub Gastrointestinal: soft, non-tender, no distention, positive bowel sounds Musculoskeletal: no edema, pulses present Neurological: normal sensation, moves all 4 limbs Psychiatric: normal affect, A&O x 3 Skin: no rash, normal turgor Dx/Plan - Plan Plan: Patient is a 64 yo male who presents with cough and possible COVID exposure: Pneumonia (Community Acquired) CXR revealed LLL Pneumonia.WBC 17.3->14.3. - Switch to PO cefdinir and azithromycin - procal and CRP negative - Ustrep, Ulegionella negative COVID PUI possible exposure through son who works at the hospital and had exposure to fellow laboratory miller - duonebs q4hr - covered with azithromycin - SHELLEY negative Syncope - likely vasovagal vs cardiac -orthostatic ruled out with no sig. change in BP from sit to stand - EKG: atrial paced rhythm at 77bpm - Hx chronic afib on carvedilol - echo ordered, last one Jul 2018 normal EF diastolic d/f-will not be completed until COVID test results - monitor on tele COPD -O2 sats 96% on admission, started on 1L O2 in the ED, have stopped and has been stable on room air overnight -continue symbicort, pharmacy to dose - if no improvement on Abx, will consider starting steroids HFrEF, POA not in exacerbation - echo as above - patient has AICD - daily weights, strict I/Os, fluid restriction DMII last a1c 9.5 in 08/2018 - continued on home lantus - ACHS accu checks - severe sliding scale insulin - CC diet CKD stage 3 - BUN/ CR - - will continue to monitor Hx Chronic AFib EKG paced - continue carvedilol Tobacco Use Disorder - will continue discuss smoking cessation with patient COde status: full code DVT prophylaxis: lovenox Dispo: admit to tele inpatient; LOS >48hr PCP: Dr. Lee ([facility]) Dispo: Stable, admitted to inpatient. Continue to monitor respiratory status, COVID negative. Anticipate discharge today. Addendum - Attending - Attending Attestation Date/Time: 01/17/20 1461 I personally evaluated the patient and discussed the management with Dr. Coley I agree with the History, Examination, Assessment and Plan documented above with any addition or exceptions noted below - Patient denies any complaints. No further episodes of syncope. Afebrile VSS. A/P: 1) CAP - changed to po abx today ; no O2 requirement. 2) Syncope- suspect secondary to ortostasis; BP decreased and no further episodes. echo pending. 3) HTN- BP stable on current regimen; d/ c home today and f/u in clinic for further adjustments.
[2020-01-17] MEDS: Mometasone 100 MCG/Formoterol 5 MCG 120 PUFF INHALER INH SCH (07:29)
[2020-01-17] MEDS: Lisinopril 20 MG TAB PO SCH (09:54)
[2020-01-17] MEDS: Escitalopram Oxalate 20 mg Tablet PO SCH (09:54)
[2020-01-17] MEDS: Aspirin 81 mg Enteric Coated Tablet PO SCH (09:54)
[2020-01-17] MEDS: levETIRAcetam 500 MG TAB PO SCH (09:55)
[2020-01-17] MEDS: Carvedilol 6.25 MG TAB PO SCH (09:56)
[2020-01-17] MEDS: Furosemide 40 MG TAB PO SCH (09:56)
[2020-01-17] MEDS: guaiFENesin/DM ER PO SCH (09:56)
[2020-01-17] MEDS: NIFEdipine XL 90 MG TAB PO SCH (09:57)
[2020-01-17] MEDS: Enoxaparin Sodium 40 MG/0.4 ML SYRINGE SC SCH (09:57)
[2020-01-17] MEDS: Insulin Glargine 42 UNITS in Pre-Filled Syringe 1 EACH SC SCH (09:57)
[2020-01-17 10:39] VITALS: TEMP 98.1
[2020-01-17 14:09] VITALS: BP 113/78
[2020-01-17] MEDS ORDERED: Azithromycin 250 MG TAB PO SCH (21:00)
[2020-01-17] MEDS ORDERED: Cefdinir 300 MG CAP PO SCH (21:00)
--- NOTE | 2020-01-18 06:58 | PQF ---
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 Clinical indicators are provided on the bottom of this form for your review Can you please further clarify if Acute respiratory failure is ruled in or ruled out? [ ] Ruled in diagnosis [ ] Continue to treat [ ] Resolved [ ] Ruled out diagnosis [ ] Cannot rule out diagnosis [ ] Other diagnosis please specify [ ] Unable to determine In addition, please specify: Present on Admission (POA): [ ] Yes [ ] No [ ] Unable to determine For continuity of documentation, please document condition throughout progress notes and discharge summary. Thank You. CLINICAL INDICATORS - SIGNS / SYMPTOMS / LABS ED Provider pg.5- AC Respi failure unspecified hypoxia/hypercapnia H and P pg.1- Shortness of breath H and P pg.2- ROS Respiratory: reports cough, congestion, SOB, exercise intolerance VITAL SIGNS- O2 sat of 93L,92L,94L Chest Xray 01/14 New airspace opacity in the left lower lobe Vital Signs 01/14: Temp=98.1 Pulse=80 Ekjac=005/92 Respi=24 RISK FACTORS DM2- H and P pg.1 CAD- H and P pg.1 HFrEF- H and P pg.1 COPD- H and P pg.1 Smokes 8 cigarettes a day- H and P pg.2 CAP- H and P pg.1 TREATMENTS Chest X ray 01/14 Oxygen supplementation DuoNeb 3ml NEB- MAR Mometasone Inhaler- MAR (This form is maintained as a part of the permanent medical record) 2014 [employer], [employer]. All Rights Reserved [email or web address] [place]
--- NOTE | 2020-01-18 12:31 | DIS ---
DATE OF ADMISSION: 01/15/2020 DATE OF DISCHARGE: 01/17/2020 RESIDENT: Shayan Coley MD ADMITTING ATTENDING: Lavern Donohue MD DISCHARGE ATTENDING: Lavern Donohue MD CONSULTS: None. PROCEDURES: Echo was done, read has not been uploaded. Chest x-ray showing new opacity in the left lower lobe and lingula suspicious for pneumonia. PRIMARY DIAGNOSIS: Community acquired pneumonia. SECONDARY DIAGNOSES: 1. Syncope. 2. Coronary artery disease status post pacemaker and AICD placement. 3. Benign prostatic hyperplasia. 4. Hypertension. 5. Migraine. 6. Hyperlipidemia. 7. Obstructive sleep apnea. 8. Chronic obstructive pulmonary disease. 9. Chronic kidney disease. DISCHARGE MEDICATIONS: 1. Azithromycin 250 mg tablets two tablets. 2. Cefdinir 300 mg capsules 6 capsules take p.o. b.i.d. for 3 days starting the evening of 01/17/2020. 3. Amitriptyline 50 mg p.o. nightly. 4. Aspirin 81 mg p.o. daily. 5. Atorvastatin 80 mg p.o. nightly. 6. Carvedilol 12.5 mg p.o. b.i.d. 7. Clonazepam 1 mg p.o. b.i.d. p.r.n. 8. Clonidine/HCL 0.3 mg p.o. daily. 9. Enalapril maleate 20 mg p.o. b.i.d. 10. Escitalopram oxalate 20 mg p.o. daily. 11. Fluticasone propionate 2 sprays each nostril daily. 12. Furosemide 40 mg p.o. daily. 13. Mucinex DM 600 mg/30 mg tablet 2 tablets p.o. q.12 hours for 4 days p.r.n., 16 tablets dispensed. 14. Insulin glargine 42 units subcu b.i.d. 15. Levetiracetam 1000 mg p.o. b.i.d. 16. Nifedipine 90 mg p.o. daily. 17. Tramadol/HCL 50 mg p.o. q.6 hours. DISCONTINUED MEDICATIONS: None. HPI/HOSPITAL COURSE: A 64-year-old male with past medical history of diabetes type 2, coronary artery disease, heart failure with reduced ejection fraction, AICD placement, COPD, anxiety, and tobacco use, who presented to the ED with shortness of breath for 2 weeks accompanied by productive cough. The patient stated he sometimes passed out from coughing or when smoking. Sometimes he felt dizzy and nauseous before passing out, but sometimes it was sudden onset with no symptoms. 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 The patient denied fevers, chills, or diarrhea. He reported smoking 8 cigarettes a day. He had taken all of his medications regularly and he was not on home O2. While in the ED, the patient got a chest x-ray with the above results, he received 500 mg of azithromycin, 1 g ceftriaxone, and 1 L normal saline bolus. The patient was COVID swabbed, which later returned negative. Over the course of the patient's hospital stay, his breathing improved and he had no more syncopal episodes. In the ED, troponin was positive at 0.062, which downtrended to 0.057. His urine Streptococcal and Legionella cultures came back negative. He got an echo done which had not resulted at the time of discharge. At the time of discharge, the patient reports that his breathing is back to baseline and no more feelings of lightheadedness/dizziness/vertigo. Steroids were not started due to improvement on antibiotics. DISPOSITION: Stable. DISCHARGE INSTRUCTIONS: 1. Location: Home. 2. Diet: Heart healthy. 3. Activity: No restrictions, as tolerated. 4. Followup: The patient should follow up with his PCP at the [facility] within 1 week. Job ID: [id number] MTDD
== END 2020-01-17 14:10 | disposition home or self-care (01) | DRG 194 ==
LOC: ERS 11:33 → ERHOLD 15:14 → 2SW 23:05 → 2NO 01-16 16:16
PROVIDERS: ADMIT Family Medicine; ATTEND Family Medicine
PROC: 8E0ZXY6 Isolation (ICD-10-PCS; principal; 2020-01-15)
DX: J18.9 Pneumonia, unspecified organism (principal); I13.0 Hypertensive heart and chronic kidney disease with heart failure and stage 1 through stage 4 chronic kidney disease, or unspecified chronic kidney disease; J44.0 Chronic obstructive pulmonary disease with (acute) lower respiratory infection; I48.20 Chronic atrial fibrillation, unspecified; I50.22 Chronic systolic (congestive) heart failure; Z20.828 Contact with and (suspected) exposure to other viral communicable diseases; E11.22 Type 2 diabetes mellitus with diabetic chronic kidney disease; I25.10 Atherosclerotic heart disease of native coronary artery without angina pectoris; N18.3 Chronic kidney disease, stage 3 (moderate); F41.9 Anxiety disorder, unspecified; F17.210 Nicotine dependence, cigarettes, uncomplicated; G43.909 Migraine, unspecified, not intractable, without status migrainosus; I95.1 Orthostatic hypotension; E78.5 Hyperlipidemia, unspecified; E78.00 Pure hypercholesterolemia, unspecified; F32.9 Major depressive disorder, single episode, unspecified; G47.33 Obstructive sleep apnea (adult) (pediatric); Z88.2 Allergy status to sulfonamides; Z95.810 Presence of automatic (implantable) cardiac defibrillator; Z88.8 Allergy status to other drugs, medicaments and biological substances; Z79.899 Other long term (current) drug therapy; I25.2 Old myocardial infarction; Z79.51 Long term (current) use of inhaled steroids; Z79.4 Long term (current) use of insulin
CPT/HCPCS: 36415; 36416; 71045; 80048; 80053; 82553; 83036; 83605; 83880; 84145; 84484; 85025; 86140; 87040; 87449; 87635; 87899; 93005; 93306; 96365; 96367; J0456; J0696; J1650; J1815; U0003

== ENCOUNTER 2020-05-27 12:17 | Outpatient (CLI) | payer MEDICARE, MEDICAID ==
--- NOTE | 2020-05-27 12:55 | RAD ---
XR Chest Pa Lat STANDARD HISTORY: Shortness of breath COMPARISON: 01/15/2020 and 10/04/2017 FINDINGS: The heart size is normal. Left-sided pacemaker device remains in place. The lungs are well expanded without focal areas of consolidation, pneumothorax or pleural effusions. Chronic changes are again seen.. IMPRESSION: No radiographic evidence of acute cardiopulmonary process.
== END 2020-05-27 12:18 | disposition home or self-care (01) ==
LOC: BICRAD 12:17
PROVIDERS: ATTEND Internal Medicine Critical Care Medicine
DX: R06.00 Dyspnea, unspecified (principal)
CPT/HCPCS: 71046

== ENCOUNTER 2020-06-20 13:00 | Inpatient (IN) | payer MEDICARE, MEDICAID ==
[2020-06-20] MEDS ORDERED: Iopamidol-370 76% 500 ML 1 ML ONE (13:48)
[2020-06-20 13:56] LABS: #Basophils 0.1 thou/uL (0.0-0.2); #Eosinphils 0.2 thou/uL (0.0-0.7); #Lymphocytes 1.8 thou/uL (1.20-3.40); #Monocytes 1.5 thou/uL (0.11-0.59); #Neutrophils 13.2 thou/uL (1.40-6.50); %Basophils 0.4 % (0.0-1.0); %Lymphocytes 10.9 % (21.0-51.0); %Monocytes 8.7 % (0.0-10.0); Hemoglobin 13.4 g/dL (14.0-18.0); Mean Corpuscular HGB CONC 33.3 g/dL (32.0-36.0); Mean Corpuscular Hemoglobin 30.8 pg (27.0-31.0); Mean Corpuscular Volume 92.5 fL (78.0-98.0); Mean Platelet Volume 7.3 fL (7.4-10.4); Platelet Count 312 thou/uL (130-400); RBC Distribution Width 12.1 % (11.5-14.5); Red Blood Cell (RBC) Count 4.35 mill/uL (4.70-6.10); White Blood Cell (WBC) Count 16.6 thou/uL (4.8-10.8)
[2020-06-20 14:18] LABS: ALT (SGPT) 31 U/L (8-55); AST (SGOT) 37 U/L (5-34); Albumin 3.8 g/dL (3.4-4.8); Alkaline Phosphatase 110 U/L (40-110); Anion Gap 14 mmol/L (10-20); BUN (Urea Nitrogen) 34 mg/dL (8.4-25.7); Bilirubin, Total 0.7 mg/dL (0.2-1.2); Calc. Creatinine Clearance 0 mL/min (70-130); Calcium 9.1 mg/dL (7.8-10.44); Carbon Dioxide 28 mmol/L (23-31); Chloride 102 mmol/L (98-107); Globulin 3.8 g/dL (2.4-3.5); Glucose 138 mg/dL (80-115); Potassium 3.6 mmol/L (3.5-5.1); Protein, Total 7.6 g/dL (5.8-8.1); Sodium 140 mmol/L (136-145)
[2020-06-20] MEDS ORDERED: methylPREDNISolone Sod Succ/PF 125 MG/2 ML VIAL ONE (14:31)
[2020-06-20] MEDS ORDERED: Magnesium 2 GM/50 ML BAG (IN WATER) ONE (14:31)
--- NOTE | 2020-06-20 14:37 | RAD ---
AP CHEST: Date: 06/20/2020 HISTORY: Shortness of breath. COMPARISON: 05/27/2020. FINDINGS: Cardiomegaly with mild vascular engorgement. There is patchy infiltrate in the left mid and lower chris g. Evidence of small effusions blunting the CP angles. Pacemaker leads are unchanged. IMPRESSION: Cardiomegaly. Mild vascular engorgement. Asymmetric infiltrate and/or edema in the mid and lower left lung. POS: AGW
[2020-06-20 14:41] LABS: CKMB 6.5 ng/mL (0-6.6)
--- NOTE | 2020-06-20 14:49 | PDOC.FPRHP ---
- History of Present Illness Chief Complaint: Shortness of breath History of Present Illness: Patient is a 65 y/o M with PMHx COPD, CAD s/p AICD, HTN, DM presents for SOB x 12 months that worsened in the last 4 months, worse with exertion with associated cough with occasional production of phlegm. Patient notes he has been blacking out almost daily for the past month due to getting short of breath or coughing a lot. He has been discussing getting home oxygen with PCP and Pulm. Saw Pulm Dr. Allen 3 days ago who wanted to do additional testing on him, unsure of what. Per patient's son patient has been hallucinating the past week, seeing cats and dogs that arn't there, was told by PCP this could be related to starting Chantix 1 month ago and was told to stop taking Chantix. No fevers or chills, highest temp 99 F at home. Reports compliance with home medications, COPD-nebulizer and emergency inhaler daily. Denies chest pain, dyspnea on exertion. Reports increased swelling in his hands over the past 4 weeks. No known sick contacts or COVID exposures. Current every day smoker, had cut down to 1/2 ppd but recently increased back to 1 ppd last month. Smoker x 20+ years. ED Course: 1L IVF, Rocephin/Azithromycin, solumedrol, Duonebs, magsulfate - Allergies/Adverse Reactions Allergies Allergy/AdvReac Type Severity Reaction Status Date / Time Tetracyclines Allergy Severe Verified 06/20/20 20:11 NSAIDS (Non-Steroidal Allergy Unknown Verified 06/20/20 20:11 Anti-Inflamma sulfamethoxazole Allergy Unknown Verified 06/20/20 20:11 [From Bactrim] trimethoprim [From Bactrim] Allergy Unknown Verified 06/20/20 20:11 - Home Medications Medication Instructions Recorded Confirmed Type levETIRAcetam [Keppra] 1,000 mg PO BID 08/04/18 06/20/20 History Amitriptyline HCl 50 mg PO HS 01/15/20 06/20/20 History Aspirin [Lo-Dose Aspirin EC] 81 mg PO QAM 01/15/20 06/20/20 History Atorvastatin Calcium 80 mg PO HS 01/15/20 06/20/20 History Enalapril Maleate 20 mg PO BID 01/15/20 06/20/20 History Escitalopram Oxalate 20 mg PO QAM 01/15/20 06/20/20 History Furosemide 40 mg PO DAILY 01/15/20 06/20/20 History Insulin Glargine,Hum.Rec.Anlog 45 units SQ BID 01/15/20 06/20/20 History [Lantus] NIFEdipine [Nifedipine ER] 90 mg PO HS 01/15/20 06/20/20 History cloNIDine HCl 0.3 mg PO QAM 01/15/20 06/20/20 History clonazePAM [Klonopin] 1 mg PO BID PRN 01/15/20 06/20/20 History Fluticasone Propionate [Flonase 2 spray EA NARE DAILY PRN 01/16/20 06/20/20 History Allergy Relief] Albuterol Sulfate [Albuterol 1 - 2 puff INH QID 06/20/20 06/20/20 History Sulfate Hfa] Budesonide/Formoterol Fumarate 10.2 gm IH BID 06/20/20 06/20/20 History [Budesonide-Formoterol 160-4.5] Carvedilol [Coreg] 12.5 mg PO BID 06/20/20 06/20/20 History Ipratropium/Albuterol Sulfate 3 ml NEB QID 06/20/20 06/20/20 History [Duoneb] traMADol HCl [Ultram] 50 mg PO QID 06/20/20 06/20/20 History - History PMHx: COPD, CAD s/p AICD, HTN, DM II, CVA, CKD III, Seizures, Depression, Anxiety PSHx: abdominal surgery 08/2019, pacemaker 08/2019 FHx: no family history Social: currently smoking 1ppd, has smoked 30+ years, lives with 2 sons at home, no alcohol or drugs - Review of Systems General: reports: fever/chills. denies: weight/appetite/sleep changes Eyes: reports: other (vision getting worse x last year). denies: eye pain ENT: denies: nasal congestion, rhinorrhea Respiratory: reports: cough, shortness of breath. denies: congestion Cardiovascular: reports: chest pain. denies: palpitation, edema Gastrointestinal: denies: nausea, vomiting, diarrhea, constipation, abdominal pain Genitourinary: denies: incontinence, dysuria Skin: denies: rashes, lesions Musculoskeletal: denies: stiffness, arthritis/arthralgias Neurological: denies: numbness Psychological: reports: anxiety, depression - Vital signs BP: 135/80, Pulse: 90, Resp: 30, Temp: 97.8 (Oral), O2 sat: 93 on 2L - Physical Exam Constitutional: NAD, awake, alert and oriented HEENT: normocephalic and atraumatic, PERRLA, EOMI, MMM Neck: supple, FROM Heart: RRR, normal S1/S2, no murmurs/rubs/gallops, pulses present, other (1+ LE pitting edema) Lungs: other (Wheezing diffusely, Decreased BS) Abdomen: soft, non-tender, bowel sounds present Musculoskeletal: normal structure, normal tone, other (edema on dorsal aspect bilateral hands) Neurological: no focal deficit, CN II-XII intact Skin: no rash/lesions, good turgor Heme/Lymphatic: no unusual bruising or bleeding, no purpura Psychiatric: normal mood and affect, good judgment and insight, intact recent and remote memory FMR H&P: Results - Labs Result Diagrams: 06/21/20 04:10 06/21/20 04:10 Lab results: WBC 16.6 thou/uL (4.8-10.8) H 06/20/20 13:47 Hgb 13.4 g/dL (14.0-18.0) L 06/20/20 13:47 Hct 40.2 % (42.0-52.0) L 06/20/20 13:47 MCV 92.5 fL (78.0-98.0) 06/20/20 13:47 Plt Count 312 thou/uL (130-400) 06/20/20 13:47 Neutrophils % 79.0 % (42.0-75.0) H 06/20/20 13:47 Sodium 140 mmol/L (136-145) 06/20/20 13:47 Potassium 3.6 mmol/L (3.5-5.1) 06/20/20 13:47 Chloride 102 mmol/L (98-107) 06/20/20 13:47 Carbon Dioxide 28 mmol/L (23-31) 06/20/20 13:47 BUN 34 mg/dL (8.4-25.7) H 06/20/20 13:47 Creatinine 1.38 mg/dL (0.7-1.3) H 06/20/20 13:47 Glucose 138 mg/dL (80-115) H 06/20/20 13:47 Lactic Acid 0.7 mmol/L (0.5-2.2) 06/20/20 14:15 Calcium 9.1 mg/dL (7.8-10.44) 06/20/20 13:47 Total Bilirubin 0.7 mg/dL (0.2-1.2) 06/20/20 13:47 AST 37 U/L (5-34) H 06/20/20 13:47 ALT 31 U/L (8-55) 06/20/20 13:47 Alkaline Phosphatase 110 U/L (40-110) 06/20/20 13:47 CK-MB (CK-2) 6.5 ng/mL (0-6.6) 06/20/20 13:47 B-Natriuretic Peptide 249.3 pg/mL (0-100) H 06/20/20 13:47 Serum Total Protein 7.6 g/dL (5.8-8.1) 06/20/20 13:47 Albumin 3.8 g/dL (3.4-4.8) 06/20/20 13:47 FMR H&P: A/P - Plan Acute Hypoxic Respiratory Failure 2/2 Recurrent L Lobar Pneumonia CXR: Asymmetric infiltrate and/or edema in the mid and lower left lung WBC 16.6, RR 30, met sepsis criteria on admission Previous LLL PNA 12/2019, 30+ year smoker, concern for Lung Cancer - Ordered procal - resume Rocephin and Azithromycin - BCx pending - Ordered U strep, Ulegionella - will get CT Chest with Con 2/2 cancer suspicion COPD - continue symbicort - duonebs q4hr scheduled, q2hr prn - prednisone 40mg x 5days - monitor respiratory status, goal sats >88% Hx HFpEF/HFrEF mixed BNP: 249.3, likely elevated 2/2 ckd and current strain from acute infection last echo 01/17/2020: EF 50-55%, mild concentric LVH, mildly elevated pulmonary artery pressure Patient has AICD - daily weights - strict I/Os - fluid restriction DMII Last a1c 8 (12/2019) - continue lantus 42 BID - ACHS glucose checks - SSI Indeterminate Trop Trop 0.4 Hx of indeterminant trops on previous admission - will trend - will monitor on tele HTN - resume home meds CKD Stage 3 BUN/Cr: 34/1.38 Baseline Cr appears to be 0.8-1.2 - will continue to monitor - am BMP Hx chronic Afib - resume home carvedilol Tobacco use disorder - will dormitory counselor on cessation Depression/Anxiety - resume home meds CAD s/p AICD - aware, as above Hx of Seizures - resume kekodyra PCP: [facility] Code Status: Full DVT PPx: lovenox Dispo: admit inpatient tele, will trend troponins, treat for CAP, r/o lung cancer with CT w/ con FMR H&P: Upper Level - Plan Date/Time: 06/20/20 [id number] ILiang DO, have evaluated this patient and agree with findings/plan as outlined by business analyst intern resident. Pertinent changes/additions are listed here. 65 yo m w pmhx sig for copd, chf, ckd presents for sob he reports for the past 3 months he has had sob, acutely worsening in the last 3 days. he reports fever/chills, productive cough, chest pain with cough, and wheeze. he denies orthopnea, recent weight loss or gain. he did have a very similar presentation in january of this year, since that time he has been taking inhalers and seeing his pcp, fu with pulm recently. on my exam he has diminished lung sounds throughout with crackles in LL and ML, RRR, no JVD noted, abd nttp, mild edema on dorsum of hands b/l, trace edema in LE. In the ED he received steroids, nebs, abx and mag. cxr reveals LM and LL opacity, no vascular congestion, or effusion on R side, L side obscured, EKG sig for a paced, no axis deviation noted. labs are neg for covid, cr, trop, wbc, bnp elevated. Acute hy poxic respiratory failure 2/2 recurrent lobar pna. will treat with abx, obtain procal. HRCT to r/o cancer as cause for recurrence. COPD exac: steroids, nebs, cont. home meds. NSTEMI type II: trend trops, bnp likely elevated 2/2 ckd and current strain from acute infection, euvolemic on exam and imaging at this time, will avoid diuresis. consider diuresis if current interventions do not improve condition, recent echo showed HFpEF. please see business analyst intern note for mgmt of chronic medical conditions. Addendum - Attending - Attending Attestation Date/Time: 06/21/20 1040 I personally evaluated the patient and discussed the management with Dr. Juve garcia. I agree with the History, Examination, Assessment and Plan documented above with any addition or exceptions noted below.
[2020-06-20] MEDS ORDERED: cefTRIAXone\\ROCEPHIN 2 GM VIAL ONE (15:11)
[2020-06-20] MEDS ORDERED: Azithromycin 500 MG VIAL ONE (15:56)
[2020-06-20] MEDS ORDERED: Azithromycin 250 MG TAB ONE (15:57)
[2020-06-20] MEDS ORDERED: Dextrose 5% in Water 1,000 ML IV PRN (16:02)
[2020-06-20] MEDS ORDERED: Dextrose 50% Abboject 50 ML SYRINGE SLOW IVP PRN (16:02)
[2020-06-20] MEDS ORDERED: HumaLOG 300 UNITS/3 ML VIAL SC PRN (16:02)
[2020-06-20 16:47] LABS: SARS-CoV-2 NAA Rapid Test Not Detected (NotDetected)
[2020-06-20] MEDS ORDERED: clonazePAM 1 MG TAB PO PRN (17:17)
[2020-06-20 17:49] LABS: Troponin I 0.055 ng/mL (< 0.028)
[2020-06-20] MEDS ORDERED: Albuterol Sulfate 2.5 mg/3 ml Neb NEB PRN (17:56)
[2020-06-20 20:07] LABS: Troponin I 0.039 ng/mL (< 0.028)
--- NOTE | 2020-06-20 20:34 | CT ---
CT OF THE CHEST WITH CONTRAST: 06/20/20 COMPARISON: 04/30/11 and chest x-ray 06/20/20. HISTORY: Shortness of breath and COPD. Pain in the right lower chest when taking a deep breath. TECHNIQUE: Multiple contiguous axial images were obtained in a CT of the chest with contrast. Sagittal and coron al reformats were performed. FINDINGS: The heart is upper limits of normal in size. There are calcifications in the coronary arteries. There is a pacemaker with its leads in the right atrium and ventricle. There are mildly prominent mediasti nal lymph nodes. The largest is an enlarged pretracheal lymph node measuring 2.6 cm in size but this still demonstrates a fatty hilum and is likely normal. There are multifocal scattered infiltrates in the lungs sparing the right upper lobe and right middle lobe. These are peripheral and concerning for COVID pneumonia. There is a small left pleural effusio n. No pneumothorax is seen. No suspicious pulmonary nodules are appreciated. Degenerative changes are seen in the spine. Degenerative changes are seen in the spine. There are lizz cified granulomas in the spleen from prior granulomatous disease. There is a hypodensity in the left kidney which likely represents a cyst. The other visualized subdiaphragmatic structures are unremarka ble. Degenerative changes are seen in the spine. There are healed right sided rib fractures. The chest wal l soft tissues are unremarkable. IMPRESSION: 1. COVID pneumonia. 2. Slightly prominent but likely normal mediastinal lymph nodes. POS: EAA
[2020-06-20] MEDS: Mometasone 200 MCG/Formoterol 5 MCG 120 PUFF INHALER INH SCH (21:32)
[2020-06-20] MEDS: Albuterol Sulfate 2.5 mg/3 ml Neb NEB SCH (21:36)
[2020-06-20] MEDS: Lisinopril 20 MG TAB PO SCH (21:39)
[2020-06-20] MEDS: levETIRAcetam 500 MG TAB PO SCH (21:39)
[2020-06-20] MEDS: Amitriptyline HCl 25 MG TAB PO SCH (21:40)
[2020-06-20] MEDS: Carvedilol 25 MG TAB PO SCH (21:40)
[2020-06-20] MEDS: Atorvastatin Calcium 40 MG TAB PO SCH (21:40)
[2020-06-20] MEDS: PRE FILLED SC SCH (21:41)
[2020-06-20] MEDS: INSULIN GLARGINE SC SCH (21:41)
[2020-06-20 23:11] VITALS: BMI 34.0
[2020-06-21] MEDS ORDERED: Lorazepam 1 MG TAB PO SCH (00:30)
[2020-06-21] MEDS: Nicotine 14 MG PATCH TD SCH ×2 (00:46→17:22)
[2020-06-21 01:00] LABS: Legionella Urinary Ag Negative (Negative); Strep pneumo Urine Ag NEGATIVE (NEGATIVE)
[2020-06-21 05:03] LABS: #Monocytes 0.5 thou/uL (0.11-0.59); #Neutrophils 10.8 thou/uL (1.40-6.50); %Basophils 0.1 % (0.0-1.0); %Eosinophils 0.2 % (0.0-10.0); %Lymphocytes 8.4 % (21.0-51.0); %Monocytes 3.9 % (0.0-10.0); %Neutrophils 87.4 % (42.0-75.0); Hemoglobin 13.6 g/dL (14.0-18.0); Mean Corpuscular HGB CONC 33.3 g/dL (32.0-36.0); Mean Corpuscular Hemoglobin 31.1 pg (27.0-31.0); Mean Corpuscular Volume 93.3 fL (78.0-98.0); Mean Platelet Volume 7.7 fL (7.4-10.4); Platelet Count 336 thou/uL (130-400); RBC Distribution Width 12.1 % (11.5-14.5); Red Blood Cell (RBC) Count 4.36 mill/uL (4.70-6.10); White Blood Cell (WBC) Count 12.4 thou/uL (4.8-10.8)
[2020-06-21 05:28] LABS: Anion Gap 15 mmol/L (10-20); BUN (Urea Nitrogen) 32 mg/dL (8.4-25.7); Calc. Creatinine Clearance 81 mL/min (70-130); Calcium 9.1 mg/dL (7.8-10.44); Carbon Dioxide 27 mmol/L (23-31); Chloride 103 mmol/L (98-107); Glucose 212 mg/dL (80-115); Potassium 3.9 mmol/L (3.5-5.1); Sodium 141 mmol/L (136-145)
[2020-06-21] MEDS: HumaLOG 300 UNITS/3 ML VIAL SC PRN ×3 (06:01→17:19)
--- NOTE | 2020-06-21 06:15 | PDOC.FM ---
- Subjective Subjective: Patient is sitting up in bed. He states his breathing is improved. Denies chest pain, fever or chills. No abdominal pain, nausea or vomiting. - Objective MAR Reviewed: Yes Vital Signs & Weight: Vital Signs (12 hours) Temp Pulse Resp BP BP Pulse Ox 06/21/20 03:06 97.7 F 94 24 H 163/84 H 98 06/21/20 00:00 97.0 F L 84 20 124/79 94 L 06/20/20 21:38 92 L 06/20/20 21:36 20 92 L 06/20/20 21:32 95 06/20/20 19:55 98.0 F 92 20 155/86 H 92 L 06/20/20 19:50 92 L 06/20/20 18:30 97.9 F 91 17 157/91 H 93 L Weight Weight 98.52 kg I&O: 06/19/20 06/20/20 06/21/20 06:59 06:59 06:59 Intake Total 1560 Output Total 685 Balance 875 Result Diagrams: 06/21/20 04:10 06/21/20 04:10 Phys Exam - Physical Examination Constitutional: NAD HEENT: PERRLA, moist MMs faint expiratory wheeze bilaterally Cardiovascular: RRR, no significant murmur Gastrointestinal: soft, non-tender, positive bowel sounds 1+ pitting edema LE R>L Neurological: non-focal, moves all 4 limbs Psychiatric: normal affect, A&O x 3 Skin: no rash Dx/Plan - Plan Plan: Acute Hypoxic Respiratory Failure 2/2 Recurrent L Lobar Pneumonia CXR: Asymmetric infiltrate and/or edema in the mid and lower left lung WBC 16.6, RR 30, met sepsis criteria on admission Previous LLL PNA 12/2019, 30+ year smoker, concern for Lung Cancer - COVID negative, Ur Legionella and S. Pneumo negative - Procal .03--> .02 - CT Chest - COVID PNA - resume Rocephin and Azithromycin - BCx: no growth to date COPD - continue symbicort - duonebs q4hr scheduled, with albuterol q2hr prn - prednisone 40mg x 5days - monitor respiratory status, goal sats >88% - will likely add LAMA on discharge Hx HFpEF/HFrEF mixed BNP: 249.3, likely elevated 2/2 ckd and current strain from acute infection last echo 01/17/2020: EF 50-55%, mild concentric LVH, mildly elevated pulmonary artery pressure Patient has AICD - daily weights - strict I/Os - fluid restriction DMII Last a1c 8 (12/2019) - continue lantus 42 BID - ACHS glucose checks - SSI Indeterminate Trop Trop 0.4 --> downtrended .39 Hx of indeterminant trops on previous admission - will monitor on tele HTN - resume home meds CKD Stage 3 BUN/Cr: 32.26 Baseline Cr appears to be 0.8-1.2 - will continue to monitor - am BMP Hx chronic Afib - resume home carvedilol Tobacco use disorder - will aids counselor on cessation Depression/Anxiety - resume home meds CAD s/p AICD - aware, as above Hx of Seizures - resume yaya PCP: [facility] Code Status: Full DVT PPx: lovenox Dispo: Likely <48 hours Addendum - Attending - Attending Attestation Date/Time: 06/21/20 [id number] I personally evaluated the patient and discussed the management with the team. I agree with the History, Examination, Assessment and Plan documented above with any addition or exceptions noted below. a mixed picture of COPD + HFpEF(by last echo). Will tx for both.
[2020-06-21] MEDS: Mometasone 200 MCG/Formoterol 5 MCG 120 PUFF INHALER INH SCH ×2 (06:35→19:11)
[2020-06-21] MEDS: Albuterol Sulfate 2.5 mg/3 ml Neb NEB SCH (06:38)
[2020-06-21] MEDS ORDERED: FLU VACC QS2020-21(65YR UP)/PF 240 MCG/0.7 ML SYRINGE IM ONE (09:00)
[2020-06-21] MEDS ORDERED: Furosemide 40 MG TAB PO SCH (09:00)
[2020-06-21] MEDS ORDERED: cefTRIAXone\\ROCEPHIN 1 GM in Sodium Chloride 0.9% 100 ML IVPB SCH (09:00)
[2020-06-21] MEDS ORDERED: Azithromycin 250 MG in Sodium Chloride 0.9% 250 ML 250 ML IVPB SCH (09:00)
[2020-06-21] MEDS: Lisinopril 20 MG TAB PO SCH ×2 (09:17→20:30)
[2020-06-21] MEDS: Carvedilol 25 MG TAB PO SCH ×2 (09:18→20:31)
[2020-06-21] MEDS: cloNIDine 0.3 MG TAB PO SCH (09:18)
[2020-06-21] MEDS: NIFEdipine XL 90 MG TAB PO SCH (09:18)
[2020-06-21] MEDS: predniSONE 20 MG TAB PO SCH (09:18)
[2020-06-21] MEDS: Aspirin 81 mg Enteric Coated Tablet PO SCH (09:18)
[2020-06-21] MEDS: Escitalopram Oxalate 20 mg Tablet PO SCH (09:18)
[2020-06-21] MEDS: levETIRAcetam 500 MG TAB PO SCH ×2 (09:19→20:29)
[2020-06-21] MEDS: INSULIN GLARGINE SC SCH ×2 (09:19→20:32)
[2020-06-21] MEDS: PRE FILLED SC SCH ×2 (09:19→20:32)
[2020-06-21] MEDS: Fluticasone Propionate Nasal Spray 16 gm Bottle NASAL SCH (09:20)
[2020-06-21] MEDS: Enoxaparin Sodium 40 MG/0.4 ML SYRINGE SC SCH (09:22)
[2020-06-21] MEDS ORDERED: Furosemide 20 MG/2 ML VIAL SLOW IVP SCH (11:30)
[2020-06-21] MEDS: Atorvastatin Calcium 40 MG TAB PO SCH (20:29)
[2020-06-21] MEDS: Amitriptyline HCl 25 MG TAB PO SCH (20:30)
[2020-06-22] MEDS: traMADol HCl 50 MG TAB PO PRN (00:18)
[2020-06-22 04:23] LABS: #Eosinphils 0.1 thou/uL (0.0-0.7); #Lymphocytes 1.8 thou/uL (1.20-3.40); #Monocytes 1.7 thou/uL (0.11-0.59); #Neutrophils 15.6 thou/uL (1.40-6.50); %Basophils 0.1 % (0.0-1.0); %Eosinophils 0.3 % (0.0-10.0); %Lymphocytes 9.4 % (21.0-51.0); %Monocytes 8.6 % (0.0-10.0); %Neutrophils 81.6 % (42.0-75.0); Hemoglobin 12.4 g/dL (14.0-18.0); Mean Corpuscular HGB CONC 32.4 g/dL (32.0-36.0); Mean Corpuscular Hemoglobin 31.1 pg (27.0-31.0); Mean Corpuscular Volume 95.9 fL (78.0-98.0); Mean Platelet Volume 7.7 fL (7.4-10.4); Platelet Count 275 thou/uL (130-400); RBC Distribution Width 12.1 % (11.5-14.5); White Blood Cell (WBC) Count 19.2 thou/uL (4.8-10.8)
[2020-06-22 04:42] LABS: Anion Gap 14 mmol/L (10-20); BUN (Urea Nitrogen) 31 mg/dL (8.4-25.7); Calc. Creatinine Clearance 98 mL/min (70-130); Calcium 8.3 mg/dL (7.8-10.44); Carbon Dioxide 25 mmol/L (23-31); Chloride 106 mmol/L (98-107); Glucose 147 mg/dL (80-115); Potassium 4.2 mmol/L (3.5-5.1); Sodium 141 mmol/L (136-145)
--- NOTE | 2020-06-22 06:08 | PDOC.FM ---
- Subjective Subjective: Patient is sitting up in bed. He has no acute concerns. Reports that his breathing is improved. Denies fever/chills, abdominal pain, N/V. - Objective MAR Reviewed: Yes Vital Signs & Weight: Vital Signs (12 hours) Temp Pulse Resp BP BP Pulse Ox 06/22/20 04:00 97.6 F 90 17 170/84 H 94 L 06/22/20 02:49 96 06/21/20 23:25 95 06/21/20 20:30 142/79 H 06/21/20 20:18 98 F 85 18 142/79 H 96 06/21/20 19:13 96 06/21/20 19:12 96 06/21/20 19:11 98 Weight Weight 102.965 kg I&O: 06/20/20 06/21/20 06/22/20 06:59 06:59 06:59 Intake Total 1560 1721 Output Total 685 700 Balance 875 1021 Result Diagrams: 06/22/20 03:37 06/22/20 03:37 Phys Exam - Physical Examination Constitutional: NAD HEENT: PERRLA, moist MMs Respiratory: no wheezing, clear to auscultation bilateral Cardiovascular: RRR, no significant murmur Gastrointestinal: soft, non-tender, positive bowel sounds 1+ pitting edema b/l LE, R>L Neurological: moves all 4 limbs Psychiatric: normal affect, A&O x 3 Skin: no rash Dx/Plan - Plan Plan: Acute Hypoxic Respiratory Failure 2/2 COPD Exacerbation with possible associated viral PNA CXR: Asymmetric infiltrate and/or edema in the mid and lower left lung Previous LLL PNA 12/2019, 30+ year smoker, concern for Lung Cancer --> CT chest: COVID PNA COVID negative, Ur Legionella and S. Pneumo negative Procal .03--> .02 BCx: no growth to date - will stop rocephin as we think this is unlikely Bacterial PNA, and more of a COPD exacerbation, with poss viral PNA - Continue azithromycin for 5 total days for COPD exacerbation - continue symbicort - duonebs q4hr scheduled, with albuterol q2hr prn - prednisone 40mg x 5 total days - monitor respiratory status, goal sats >88% - Currently satting 92 on RA, per nurse sats drop with walking - will get walking O2 test, CM consult for possible home O2 - will likely add LAMA on discharge Mild CHF exacerbation, HFpEF (by last echo) BNP: 249.3, likely elevated 2/2 ckd and current strain from acute infection last echo 01/17/2020: EF 50-55%, mild concentric LVH, mildly elevated pulmonary artery pressure Patient has AICD Appeared mildly fluid overloaded, received additional 10mg IV lasix 06/21, improved fluid status today - will add additional 20mg PO lasix, and discharge with additional lasix prn - daily weights - strict I/Os - fluid restriction DMII Last a1c 8 (12/2019) - continue lantus 42 BID - ACHS glucose checks - SSI Indeterminate Trop Trop 0.4 --> downtrended .39 Hx of indeterminant trops on previous admission - will monitor on tele HTN - resume home meds CKD Stage 3 BUN/Cr: 32/1.26 Baseline Cr appears to be 0.8-1.2 - will continue to monitor - am BMP Hx chronic Afib - resume home carvedilol Tobacco use disorder - will debt counselor on cessation Depression/Anxiety - resume home meds CAD s/p AICD - aware, as above Hx of Seizures - resume yaya PCP: [facility] Code Status: Full DVT PPx: lovenox Dispo: Likely <48 hours Addendum - Attending - Attending Attestation Date/Time: 06/22/20 1321 I personally evaluated the patient and discussed the management with Dr. An I agree with the History, Examination, Assessment and Plan documented above with any addition or exceptions noted below. COPD Exacerbation- on Azithro, steroids, nebs, O2 wean to keep sats >90% mild CHF exac- on lasix with -159 ml diureses. Walking O2 sats to help with getting home O2 set up. Probable d/c in the next few days.
[2020-06-22] MEDS: Mometasone 200 MCG/Formoterol 5 MCG 120 PUFF INHALER INH SCH ×2 (06:54→18:41)
[2020-06-22] MEDS ORDERED: Furosemide 20 MG TAB PO SCH (08:15)
[2020-06-22] MEDS: Enoxaparin Sodium 40 MG/0.4 ML SYRINGE SC SCH (08:42)
[2020-06-22] MEDS: Azithromycin 250 MG TAB PO SCH (08:43)
[2020-06-22] MEDS: predniSONE 20 MG TAB PO SCH (08:43)
[2020-06-22] MEDS: cloNIDine 0.3 MG TAB PO SCH (08:43)
[2020-06-22] MEDS: Lisinopril 20 MG TAB PO SCH ×2 (08:43→20:45)
[2020-06-22] MEDS: Carvedilol 25 MG TAB PO SCH ×2 (08:43→20:45)
[2020-06-22] MEDS: Aspirin 81 mg Enteric Coated Tablet PO SCH (08:43)
[2020-06-22] MEDS: NIFEdipine XL 90 MG TAB PO SCH (08:43)
[2020-06-22] MEDS: Fluticasone Propionate Nasal Spray 16 gm Bottle NASAL SCH (08:43)
[2020-06-22] MEDS: levETIRAcetam 500 MG TAB PO SCH ×2 (08:43→20:45)
[2020-06-22] MEDS: Escitalopram Oxalate 20 mg Tablet PO SCH (08:43)
[2020-06-22] MEDS: INSULIN GLARGINE SC SCH ×2 (08:44→20:46)
[2020-06-22] MEDS: PRE FILLED SC SCH ×2 (08:44→20:46)
[2020-06-22] MEDS: HumaLOG 300 UNITS/3 ML VIAL SC PRN ×2 (11:33→17:36)
[2020-06-22] MEDS: Nicotine 14 MG PATCH TD SCH (16:44)
[2020-06-22] MEDS: Atorvastatin Calcium 40 MG TAB PO SCH (20:44)
[2020-06-22] MEDS: Amitriptyline HCl 25 MG TAB PO SCH (20:45)
[2020-06-23] MEDS: traMADol HCl 50 MG TAB PO PRN (04:07)
[2020-06-23 04:33] LABS: #Eosinphils 0.1 thou/uL (0.0-0.7); #Lymphocytes 2.5 thou/uL (1.20-3.40); #Monocytes 1.3 thou/uL (0.11-0.59); #Neutrophils 12.6 thou/uL (1.40-6.50); %Basophils 0.2 % (0.0-1.0); %Eosinophils 0.4 % (0.0-10.0); %Neutrophils 76.4 % (42.0-75.0); Hemoglobin 13.4 g/dL (14.0-18.0); Mean Corpuscular HGB CONC 32.1 g/dL (32.0-36.0); Mean Corpuscular Hemoglobin 30.7 pg (27.0-31.0); Mean Corpuscular Volume 95.7 fL (78.0-98.0); Mean Platelet Volume 6.9 fL (7.4-10.4); Platelet Count 311 thou/uL (130-400); RBC Distribution Width 12.2 % (11.5-14.5); Red Blood Cell (RBC) Count 4.36 mill/uL (4.70-6.10); White Blood Cell (WBC) Count 16.4 thou/uL (4.8-10.8)
[2020-06-23 05:05] LABS: Anion Gap 14 mmol/L (10-20); BUN (Urea Nitrogen) 23 mg/dL (8.4-25.7); Calc. Creatinine Clearance 125 mL/min (70-130); Calcium 8.5 mg/dL (7.8-10.44); Carbon Dioxide 26 mmol/L (23-31); Chloride 106 mmol/L (98-107); Glucose 68 mg/dL (80-115); Potassium 3.8 mmol/L (3.5-5.1); Sodium 142 mmol/L (136-145)
--- NOTE | 2020-06-23 06:37 | PDOC.FM ---
- Subjective Subjective: Patient is resting comfortably in bread. States that he is breathing much better and his swelling in his hands is improved. He states that he feels that he gets out of breath with walking easily, and noted that he was going to start working on building up his endurance at home. Denies chest pain, fever/chills. - Objective MAR Reviewed: Yes Vital Signs & Weight: Vital Signs (12 hours) Temp Pulse Resp BP BP Pulse Ox 06/23/20 04:06 97.4 F L 87 19 157/91 H 94 L 06/22/20 23:27 93 L 06/22/20 20:45 150/84 H 06/22/20 20:40 97.5 F L 89 13 150/84 H 95 06/22/20 18:44 95 06/22/20 18:43 92 L 06/22/20 18:41 92 L Weight Weight 93.758 kg I&O: 06/21/20 06/22/20 06/23/20 06:59 06:59 06:59 Intake Total 1560 2201 1620 Output Total 685 2360 2475 Balance 875 -159 -855 Result Diagrams: 06/23/20 04:04 06/23/20 04:04 Phys Exam - Physical Examination Constitutional: NAD HEENT: PERRLA, moist MMs Respiratory: no wheezing decreased BS Cardiovascular: RRR, no significant murmur Gastrointestinal: soft, non-tender, positive bowel sounds trace edema in LLE, 1+ in RLE Neurological: non-focal, moves all 4 limbs Dx/Plan - Plan Plan: Acute Hypoxic Respiratory Failure 2/2 COPD Exacerbation with possible associated viral PNA CXR: Asymmetric infiltrate and/or edema in the mid and lower left lung Previous LLL PNA 12/2019, 30+ year smoker, concern for Lung Cancer --> CT chest: COVID PNA COVID negative, Ur Legionella and S. Pneumo negative Procal .03--> .02 BCx: no growth to date - will stop rocephin as we think this is unlikely Bacterial PNA, and more of a COPD exacerbation, with poss viral PNA - Continue azithromycin for 5 total days for COPD exacerbation - continue symbicort - duonebs q4hr scheduled, with albuterol q2hr prn - prednisone 40mg x 5 total days - monitor respiratory status, goal sats >88% - Currently satting 92 on RA, per nurse sats drop with walking - walking O2 test showed patient kept his sats >92% - will likely add LAMA on discharge Mild CHF exacerbation, HFpEF (by last echo) BNP: 249.3, likely elevated 2/2 ckd and current strain from acute infection last echo 01/17/2020: EF 50-55%, mild concentric LVH, mildly elevated pulmonary artery pressure Patient has AICD Improved fluid status - will add additional 20mg PO lasix, and discharge with additional lasix prn - daily weights - strict I/Os - fluid restriction DMII Last a1c 8 (12/2019) - continue lantus 42 BID - ACHS glucose checks - SSI Indeterminate Trop Trop 0.4 --> downtrended .39 Hx of indeterminant trops on previous admission - will monitor on tele HTN - resume home meds CKD Stage 3 BUN/Cr: 32/1.26 Baseline Cr appears to be 0.8-1.2 - will continue to monitor - am BMP Hx chronic Afib - resume home carvedilol Tobacco use disorder - will student services counselor on cessation Depression/Anxiety - resume home meds CAD s/p AICD - aware, as above Hx of Seizures - resume yaya PCP: [facility] Code Status: Full DVT PPx: lovenox Dispo: likely d/c today, with remaining azithromycin and prednisone; additional 20mg PO lasix prn for weight gain >3lb Addendum - Attending - Attending Attestation Date/Time: 06/23/20 1493 I personally evaluated the patient and discussed the management with Dr. An. I agree with the History, Examination, Assessment and Plan documented above with any addition or exceptions noted below. Hypoxia resolved. Home on po azithro and prednisone. Discussed daily weights and that he may take an extra 1/2 dose (20mg) of lasix if 3# above base weight. Stable for d/c home
[2020-06-23] MEDS: Mometasone 200 MCG/Formoterol 5 MCG 120 PUFF INHALER INH SCH (06:49)
[2020-06-23] MEDS: cloNIDine 0.3 MG TAB PO SCH (09:34)
[2020-06-23] MEDS: Azithromycin 250 MG TAB PO SCH (09:34)
[2020-06-23] MEDS: Lisinopril 20 MG TAB PO SCH (09:34)
[2020-06-23] MEDS: Escitalopram Oxalate 20 mg Tablet PO SCH (09:34)
[2020-06-23] MEDS: predniSONE 20 MG TAB PO SCH (09:34)
[2020-06-23] MEDS: Aspirin 81 mg Enteric Coated Tablet PO SCH (09:35)
[2020-06-23] MEDS: NIFEdipine XL 90 MG TAB PO SCH (09:35)
[2020-06-23] MEDS: levETIRAcetam 500 MG TAB PO SCH (09:35)
[2020-06-23] MEDS: Carvedilol 25 MG TAB PO SCH (09:36)
[2020-06-23] MEDS: Fluticasone Propionate Nasal Spray 16 gm Bottle NASAL SCH (09:36)
[2020-06-23] MEDS: Enoxaparin Sodium 40 MG/0.4 ML SYRINGE SC SCH (09:36)
[2020-06-23] MEDS: PRE FILLED SC SCH (09:36)
[2020-06-23] MEDS: INSULIN GLARGINE SC SCH (09:36)
[2020-06-23 11:47] VITALS: BP 118/70; TEMP 97.8
[2020-06-23] MEDS: HumaLOG 300 UNITS/3 ML VIAL SC PRN (11:49)
[2020-06-24] MEDS ORDERED: Furosemide 40 MG TAB PO SCH (07:30)
--- NOTE | 2020-06-25 06:26 | DIS ---
DATE OF ADMISSION: 06/20/2020 DATE OF DISCHARGE: 06/23/2020 ADMITTING ATTENDING: Ishmael Foley MD DISCHARGE ATTENDING: Dasia Hansen MD CONSULTS: None. PROCEDURES: None. PRIMARY DIAGNOSIS: Acute hypoxic respiratory failure secondary to chronic obstructive pulmonary disease exacerbation with possible associated viral pneumonia. SECONDARY DIAGNOSES: Mild congestive heart failure exacerbation; heart failure with preserved ejection fraction by last echo; diabetes mellitus 2; indeterminate troponin; hypertension; chronic kidney disease stage 3; history of chronic atrial fibrillation; tobacco use disorder; depression and anxiety; coronary artery disease, status post AICD, history of seizures. DISCHARGE MEDICATIONS: 1. Prednisone 40 mg q.a.m. for 2 days. 2. Azithromycin 250 mg p.o. daily for 2 days. 3. Tiotropium bromide 2 inhalations daily for 30 days. 4. Albuterol sulfate 1 to 2 puffs inhaled q.4-6 hours p.r.n. shortness of breath or wheezing. 5. Amitriptyline 50 mg p.o. h.s. 6. Aspirin 81 mg p.o. q.a.m. 7. Atorvastatin 80 mg p.o. h.s. 8. Symbicort 10.2 g IH b.i.d. 9. Carvedilol 25 mg p.o. b.i.d. 10. Clonazepam 1 mg p.o. b.i.d. 11. Clonidine 0.3 mg p.o. q.a.m. 12. Enalapril 20 mg p.o. b.i.d. 13. Escitalopram 20 mg p.o. q.a.m. 14. Fluticasone 2 sprays each naris daily. 15. Furosemide 40 mg daily. 16. Lantus 45 units subcu b.i.d. 17. Ipratropium/albuterol sulfate 3 mL neb q.i.d. 18. Keppra 1000 mg p.o. b.i.d. 19. Nifedipine 90 mg p.o. h.s. 20. Tramadol 50 mg p.o. q.i.d. HISTORY OF PRESENT ILLNESS/HOSPITAL COURSE: The patient is a 65-year-old with past medical history of COPD, hypertension, diabetes, HFpEF per last echo, CAD, status post AICD, who presents with shortness of breath for the last 12 months, that worsened over the last 4 months, worse with exertion, associated with cough with occasional production of phlegm. The patient had blacking out for the past month after getting short of breath or coughing, in the process of getting home O2 set up. Per the patient's son, he has been hallucinating for the past week, was told this could be related to Chantix starting a month ago per his PCP. He reported increased swelling in his hands over the last 4 weeks. Current smoker, 1 pack per day, smoking 20+ years. In the ED, he received Rocephin, azithromycin, Solu-Medrol, DuoNeb, 1 L IVF. On exam, he had diffuse wheezing and decreased breath sounds. Chest x-ray showed asymmetric infiltrate and/or edema in the mid lower left lung. White count 16.6, respiratory rate 30, met sepsis criteria on admission, had a previous left lower lobe pneumonia in December of this year, concern for lung cancer. CT chest with contrast was ordered. BNP was 249.3, elevated from his last one. Last echo, 01/17/2020, showed an EF of 50% to 55% with mild concentric LVH, mildly elevated pulmonary arterial pressure. The patient had an indeterminate troponin that trended down. COVID, urine legionella, and Strep pneumo were all negative. CT chest showed COVID pneumonia as a read. Procal was 0.03 to 0.02. The patient was given an additional 20 mg of Lasix. The following day, his fluid status looked improved. It was determined that his respiratory failure was likely secondary to COPD exacerbation and antibiotics were stopped. Prednisone and azithromycin were continued. Walking O2 test was passed and the patient was discharged home stable with 2 additional days of prednisone and azithromycin in addition to a LAMA added onto his COPD regimen with recommendations to follow up with his primary care. Also recommended that the patient do daily weights and if the patient has an increase in 3 pounds that he take another half of his Lasix pill in addition to his daily 40 mg. DISPOSITION: Stable. DISCHARGE INSTRUCTIONS: 1. Location: Home. 2. Diet: Regular. 3. Activity: Ad vitaly. 4. Follow up with your primary care physician in the next 7 to 14 days. Job ID: [id number]
== END 2020-06-23 13:05 | disposition home or self-care (01) | DRG 871 ==
LOC: ERS 13:00 → 2NO 14:45
PROVIDERS: ADMIT Emergency Medicine; ATTEND Emergency Medicine
DX: A41.9 Sepsis, unspecified organism (principal); J96.01 Acute respiratory failure with hypoxia; J12.9 Viral pneumonia, unspecified; I50.33 Acute on chronic diastolic (congestive) heart failure; I21.A1 Myocardial infarction type 2; J44.1 Chronic obstructive pulmonary disease with (acute) exacerbation; J44.0 Chronic obstructive pulmonary disease with (acute) lower respiratory infection; I13.0 Hypertensive heart and chronic kidney disease with heart failure and stage 1 through stage 4 chronic kidney disease, or unspecified chronic kidney disease; I48.20 Chronic atrial fibrillation, unspecified; Z20.828 Contact with and (suspected) exposure to other viral communicable diseases; Z23 Encounter for immunization; E11.22 Type 2 diabetes mellitus with diabetic chronic kidney disease; N18.30 Chronic kidney disease, stage 3 unspecified; F17.210 Nicotine dependence, cigarettes, uncomplicated; F41.9 Anxiety disorder, unspecified; F32.9 Major depressive disorder, single episode, unspecified; I25.10 Atherosclerotic heart disease of native coronary artery without angina pectoris; G40.909 Epilepsy, unspecified, not intractable, without status epilepticus; N40.0 Benign prostatic hyperplasia without lower urinary tract symptoms; E78.5 Hyperlipidemia, unspecified; E78.00 Pure hypercholesterolemia, unspecified; G43.909 Migraine, unspecified, not intractable, without status migrainosus; Z95.810 Presence of automatic (implantable) cardiac defibrillator; Z86.73 Personal history of transient ischemic attack (TIA), and cerebral infarction without residual deficits; I25.2 Old myocardial infarction; Z98.42 Cataract extraction status, left eye; Z98.41 Cataract extraction status, right eye; Z95.5 Presence of coronary angioplasty implant and graft; Z88.1 Allergy status to other antibiotic agents; Z88.2 Allergy status to sulfonamides; Z88.8 Allergy status to other drugs, medicaments and biological substances; Z79.899 Other long term (current) drug therapy; Z79.82 Long term (current) use of aspirin; Z79.4 Long term (current) use of insulin; Z79.51 Long term (current) use of inhaled steroids
CPT/HCPCS: 36415; 36416; 71045; 71260; 80048; 80053; 82553; 83605; 83880; 84145; 84484; 85025; 87040; 87449; 87899; 90471; 90662; 90732; 93005; 94640; G0008; G0009; J0456; J0696; J1650; J1815; J1940; J2930; J3475; J3490; J7050; J7512; J7611; J7620; Q9967; U0002

== ENCOUNTER 2020-10-03 04:41 | Observation (INO) | payer MEDICARE, MEDICAID ==
[2020-10-03 05:29] LABS: #Basophils 0.1 thou/uL (0.0-0.2); #Eosinphils 0.4 thou/uL (0.0-0.7); #Lymphocytes 3.6 thou/uL (1.20-3.40); #Monocytes 1.6 thou/uL (0.11-0.59); #Neutrophils 10.4 thou/uL (1.40-6.50); %Basophils 0.8 % (0.0-1.0); %Eosinophils 2.5 % (0.0-10.0); %Lymphocytes 22.4 % (21.0-51.0); %Neutrophils 64.2 % (42.0-75.0); Hemoglobin 13.9 g/dL (14.0-18.0); Mean Corpuscular HGB CONC 32.7 g/dL (32.0-36.0); Mean Corpuscular Volume 91.7 fL (78.0-98.0); Mean Platelet Volume 7.5 fL (7.4-10.4); Platelet Count 307 thou/uL (130-400); RBC Distribution Width 13.1 % (11.5-14.5); Red Blood Cell (RBC) Count 4.62 mill/uL (4.70-6.10); White Blood Cell (WBC) Count 16.2 thou/uL (4.8-10.8)
[2020-10-03 05:37] LABS: ALT (SGPT) 33 U/L (8-55); AST (SGOT) 38 U/L (5-34); Alkaline Phosphatase 123 U/L (40-110); Anion Gap 13 mmol/L (10-20); BUN (Urea Nitrogen) 23 mg/dL (8.4-25.7); Bilirubin, Total 0.4 mg/dL (0.2-1.2); Calc. Creatinine Clearance 0 mL/min (70-130); Calcium 8.9 mg/dL (7.8-10.44); Carbon Dioxide 33 mmol/L (23-31); Chloride 94 mmol/L (98-107); Globulin 3.9 g/dL (2.4-3.5); Glucose 139 mg/dL (80-115); Potassium 3.1 mmol/L (3.5-5.1); Protein, Total 7.9 g/dL (5.8-8.1); Sodium 137 mmol/L (136-145)
[2020-10-03 05:49] LABS: Acetaminophen Less than 6.0 mcg/mL (10.0-30.0); Alcohol Less than 10 mg/dL (Less than 10); Salicylate Less than 8.0 mg/dL (15.0-30.0)
[2020-10-03 06:00] LABS: CKMB 3.6 ng/mL (0-6.6)
[2020-10-03] MEDS ORDERED: Potassium Chloride 20 MEQ TAB ONE (06:24)
[2020-10-03] MEDS ORDERED: Boostrix 0.5 ML (Tdap) VIAL ONE (06:24)
[2020-10-03] MEDS ORDERED: Bupivacaine 0.5% 10 ML VIAL ONE (06:27)
[2020-10-03] MEDS ORDERED: Dextrose 50% Abboject 50 ML SYRINGE SLOW IVP PRN (07:26)
[2020-10-03] MEDS ORDERED: Dextrose 5% in Water 1,000 ML IV PRN (07:26)
[2020-10-03] MEDS ORDERED: Insulin Regular 300 UNITS/3 ML VIAL SC PRN ×3 (07:26→07:35)
[2020-10-03 08:54] LABS: Troponin I 0.055 ng/mL (< 0.028)
[2020-10-03 11:33] LABS: Troponin I 0.045 ng/mL (< 0.028)
[2020-10-03] MEDS ORDERED: levETIRAcetam 500 MG TAB PO SCH (14:15)
[2020-10-03 15:24] VITALS: BMI 35.4
[2020-10-03] MEDS ORDERED: Enoxaparin Sodium 40 MG/0.4 ML SYRINGE ONE (15:33)
[2020-10-03] MEDS: Enoxaparin Sodium 40 MG/0.4 ML SYRINGE SC SCH (15:36)
[2020-10-03] MEDS ORDERED: NIFEdipine XL 90 MG TAB PO SCH (21:00)
[2020-10-03] MEDS ORDERED: Atorvastatin Calcium 40 MG TAB PO SCH (21:00)
[2020-10-03] MEDS ORDERED: Lantus 1000 UNITS/10 ML VIAL SC SCH (21:00)
[2020-10-03] MEDS: Lantus 1000 UNITS/10 ML VIAL SC SCH (21:47)
[2020-10-03] MEDS: Carvedilol 25 MG TAB PO SCH (21:48)
[2020-10-03] MEDS: levETIRAcetam 500 MG TAB PO SCH (21:51)
[2020-10-03] MEDS: Lisinopril 20 MG TAB PO SCH (21:51)
[2020-10-03 21:53] LABS: SARS-CoV-2 PCR by NAA Not Detected (NotDetected)
[2020-10-03] MEDS: Ipratropium Bromide 2.5 ml Neb NEB SCH ×2 (23:25→23:50)
[2020-10-03 23:49] LABS: Benzodiazepine Screen Detected (NotDetected); Tricyclic Screen Detected (NotDetected)
[2020-10-03 23:50] LABS: Amphetamine Not Detected (NotDetected); Barbiturates Screen Not Detected (NotDetected); Cocaine Metabolite Screen Not Detected (NotDetected); Medtox Control Line Valid? VALID (VALID); Medtox Reader # READER 4; Methadone Not Detected (NotDetected); Methamphetamine Not Detected (NotDetected); Opiate Screen Not Detected (NotDetected); Oxycodone Screen Not Detected (NotDetected); Phencyclidine (PCP) Not Detected (NotDetected); THC/Cannabinoid Screen Not Detected (NotDetected)
[2020-10-04] MEDS ORDERED: Calcium Carbonate 500 MG ChewTAB PO PRN (03:07)
[2020-10-04] MEDS ORDERED: Acetaminophen 325 MG TAB PO PRN (03:07)
[2020-10-04] MEDS: Ipratropium Bromide 2.5 ml Neb NEB SCH (07:44)
[2020-10-04] MEDS ORDERED: Furosemide 40 MG/4 ML VIAL SLOW IVP SCH (07:45)
[2020-10-04 08:40] LABS: #Basophils 0.1 thou/uL (0.0-0.2); #Eosinphils 0.3 thou/uL (0.0-0.7); #Lymphocytes 2.7 thou/uL (1.20-3.40); #Monocytes 1.6 thou/uL (0.11-0.59); #Neutrophils 11.1 thou/uL (1.40-6.50); %Basophils 0.7 % (0.0-1.0); %Eosinophils 2.1 % (0.0-10.0); %Monocytes 9.9 % (0.0-10.0); %Neutrophils 70.2 % (42.0-75.0); Hemoglobin 13.4 g/dL (14.0-18.0); Mean Corpuscular HGB CONC 33.4 g/dL (32.0-36.0); Mean Corpuscular Hemoglobin 30.4 pg (27.0-31.0); Mean Corpuscular Volume 90.9 fL (78.0-98.0); Mean Platelet Volume 6.9 fL (7.4-10.4); Platelet Count 258 thou/uL (130-400); RBC Distribution Width 12.9 % (11.5-14.5); Red Blood Cell (RBC) Count 4.42 mill/uL (4.70-6.10); White Blood Cell (WBC) Count 15.9 thou/uL (4.8-10.8)
[2020-10-04] MEDS ORDERED: Escitalopram Oxalate 20 mg Tablet PO SCH (09:00)
[2020-10-04] MEDS ORDERED: Furosemide 40 MG TAB PO SCH (09:00)
[2020-10-04] MEDS ORDERED: guaiFENesin ER 600 MG TAB PO SCH (09:00)
[2020-10-04] MEDS ORDERED: cloNIDine 0.3 MG TAB PO SCH (09:00)
[2020-10-04 09:01] LABS: Anion Gap 10 mmol/L (10-20); BUN (Urea Nitrogen) 24 mg/dL (8.4-25.7); Calc. Creatinine Clearance 100 mL/min (70-130); Calcium 9.2 mg/dL (7.8-10.44); Carbon Dioxide 31 mmol/L (23-31); Chloride 100 mmol/L (98-107); Glucose 146 mg/dL (80-115); Potassium 3.4 mmol/L (3.5-5.1); Sodium 138 mmol/L (136-145)
[2020-10-04] MEDS: levETIRAcetam 500 MG TAB PO SCH (09:04)
[2020-10-04] MEDS: Benzonatate 100 MG CAP PO SCH ×2 (09:04→15:29)
[2020-10-04] MEDS: Enoxaparin Sodium 40 MG/0.4 ML SYRINGE SC SCH (09:05)
[2020-10-04] MEDS: Carvedilol 25 MG TAB PO SCH (09:05)
[2020-10-04] MEDS: Lisinopril 20 MG TAB PO SCH (09:05)
[2020-10-04] MEDS: Lantus 1000 UNITS/10 ML VIAL SC SCH (10:01)
[2020-10-04] MEDS ORDERED: Potassium Chloride 20 MEQ TAB PO SCH (10:30)
[2020-10-04 18:11] VITALS: BP 145/78; TEMP 98.1
[2020-10-05] MEDS ORDERED: Nicotine 21 MG PATCH TD SCH (09:00)
== END 2020-10-04 18:55 | disposition home or self-care (01) ==
LOC: ERS 04:41 → ERHOLD 06:30 → 2SW 20:10
PROVIDERS: ADMIT Family Medicine; ATTEND Family Medicine
DX: R55 Syncope and collapse (principal); S51.012A Laceration without foreign body of left elbow, initial encounter; R77.8 Other specified abnormalities of plasma proteins; I13.0 Hypertensive heart and chronic kidney disease with heart failure and stage 1 through stage 4 chronic kidney disease, or unspecified chronic kidney disease; E11.22 Type 2 diabetes mellitus with diabetic chronic kidney disease; N18.30 Chronic kidney disease, stage 3 unspecified; I50.40 Unspecified combined systolic (congestive) and diastolic (congestive) heart failure; I48.20 Chronic atrial fibrillation, unspecified; I25.10 Atherosclerotic heart disease of native coronary artery without angina pectoris; R56.9 Unspecified convulsions; J44.9 Chronic obstructive pulmonary disease, unspecified; E78.5 Hyperlipidemia, unspecified; G47.33 Obstructive sleep apnea (adult) (pediatric); F17.210 Nicotine dependence, cigarettes, uncomplicated; J32.0 Chronic maxillary sinusitis; S00.83XA Contusion of other part of head, initial encounter; I25.2 Old myocardial infarction; Z86.73 Personal history of transient ischemic attack (TIA), and cerebral infarction without residual deficits; Z79.4 Long term (current) use of insulin; Z79.82 Long term (current) use of aspirin; Z79.899 Other long term (current) drug therapy; Z88.1 Allergy status to other antibiotic agents; Z88.2 Allergy status to sulfonamides; Z88.6 Allergy status to analgesic agent; Z95.810 Presence of automatic (implantable) cardiac defibrillator; Z20.822 Contact with and (suspected) exposure to COVID-19; W19.XXXA Unspecified fall, initial encounter; Y92.000 Kitchen of unspecified non-institutional (private) residence as the place of occurrence of the external cause
CPT/HCPCS: 12001; 70450; 70486; 71045; 73080; 80048; 80053; 80177; 80306; 80307; 82553; 82962 ×2; 83880; 84145; 84484 ×2; 85025 ×2; 90471; 90715; 93005; 93306; 94640 ×2; 96372 ×2; 96374; 99285; G0378 ×3; U0003; U0005; 36415; 36416; 87635; J1650; J1815; J1940; J3490; J7620

== ENCOUNTER 2020-10-09 06:20 | Emergency (ER) | payer MEDICARE, MEDICAID ==
[2020-10-09 07:01] LABS: #Basophils 0.1 thou/uL (0.0-0.2); #Eosinphils 0.5 thou/uL (0.0-0.7); #Lymphocytes 3.2 thou/uL (1.20-3.40); #Monocytes 1.6 thou/uL (0.11-0.59); #Neutrophils 11.4 thou/uL (1.40-6.50); %Basophils 0.6 % (0.0-1.0); %Eosinophils 3.1 % (0.0-10.0); %Lymphocytes 18.7 % (21.0-51.0); %Monocytes 9.5 % (0.0-10.0); Hemoglobin 13.1 g/dL (14.0-18.0); Mean Corpuscular HGB CONC 34.2 g/dL (32.0-36.0); Mean Corpuscular Hemoglobin 30.7 pg (27.0-31.0); Mean Corpuscular Volume 89.7 fL (78.0-98.0); Mean Platelet Volume 6.7 fL (7.4-10.4); Platelet Count 292 thou/uL (130-400); RBC Distribution Width 12.8 % (11.5-14.5); Red Blood Cell (RBC) Count 4.25 mill/uL (4.70-6.10); White Blood Cell (WBC) Count 16.8 thou/uL (4.8-10.8)
[2020-10-09 07:26] LABS: ALT (SGPT) 29 U/L (8-55); AST (SGOT) 44 U/L (5-34); Albumin 3.8 g/dL (3.4-4.8); Alkaline Phosphatase 112 U/L (40-110); Anion Gap 14 mmol/L (10-20); BUN (Urea Nitrogen) 24 mg/dL (8.4-25.7); Bilirubin, Total 0.3 mg/dL (0.2-1.2); Calc. Creatinine Clearance 0 mL/min (70-130); Calcium 9.1 mg/dL (7.8-10.44); Carbon Dioxide 27 mmol/L (23-31); Chloride 99 mmol/L (98-107); Globulin 4.2 g/dL (2.4-3.5); Glucose 132 mg/dL (80-115); Lipase 34 U/L (8-78); Magnesium 1.9 mg/dL (1.6-2.6); Potassium 4.4 mmol/L (3.5-5.1); Sodium 136 mmol/L (136-145)
[2020-10-09 07:42] LABS: CKMB 4.4 ng/mL (0-6.6)
[2020-10-09] MEDS ORDERED: Dexamethasone 10 MG/ML VIAL ONE (08:31)
[2020-10-09] MEDS ORDERED: Iopamidol-370 76% 500 ML 1 ML ONE (13:53)
== END 2020-10-09 09:18 | disposition home or self-care (01) ==
LOC: ERS 06:20
DX: R60.9 Edema, unspecified (principal); I25.10 Atherosclerotic heart disease of native coronary artery without angina pectoris; E11.22 Type 2 diabetes mellitus with diabetic chronic kidney disease; I12.9 Hypertensive chronic kidney disease with stage 1 through stage 4 chronic kidney disease, or unspecified chronic kidney disease; N18.9 Chronic kidney disease, unspecified; E78.5 Hyperlipidemia, unspecified; E78.00 Pure hypercholesterolemia, unspecified; G47.30 Sleep apnea, unspecified; J44.9 Chronic obstructive pulmonary disease, unspecified; I25.2 Old myocardial infarction; F17.210 Nicotine dependence, cigarettes, uncomplicated; Z79.82 Long term (current) use of aspirin; Z79.4 Long term (current) use of insulin; Z86.73 Personal history of transient ischemic attack (TIA), and cerebral infarction without residual deficits; Z95.0 Presence of cardiac pacemaker; Z95.5 Presence of coronary angioplasty implant and graft; Z79.899 Other long term (current) drug therapy
CPT/HCPCS: 70450; 71045; 71275; 80053; 82553; 83690; 83735; 83880; 84484; 85025; 85379; 93005; 94760; 96374; J1100; Q9967

== ENCOUNTER 2021-03-06 10:13 | Observation (INO) | payer MEDICARE, MEDICAID ==
[2021-03-06 10:37] LABS: #Basophils 0.1 thou/uL (0.0-0.2); #Eosinphils 0.5 thou/uL (0.0-0.7); #Lymphocytes 2.4 thou/uL (1.20-3.40); #Neutrophils 9.9 thou/uL (1.40-6.50); %Basophils 0.8 % (0.0-1.0); %Eosinophils 3.9 % (0.0-10.0); %Lymphocytes 17.3 % (21.0-51.0); %Monocytes 6.9 % (0.0-10.0); %Neutrophils 71.2 % (42.0-75.0); Hemoglobin 15.5 g/dL (14.0-18.0); Mean Corpuscular HGB CONC 34.9 g/dL (32.0-36.0); Mean Corpuscular Hemoglobin 31.5 pg (27.0-31.0); Mean Corpuscular Volume 90.3 fL (78.0-98.0); Mean Platelet Volume 7.2 fL (7.4-10.4); Platelet Count 285 thou/uL (130-400); Red Blood Cell (RBC) Count 4.91 mill/uL (4.70-6.10); White Blood Cell (WBC) Count 13.8 thou/uL (4.8-10.8)
[2021-03-06 11:12] LABS: ALT (SGPT) 37 U/L (8-55); AST (SGOT) 48 U/L (5-34); Albumin 3.8 g/dL (3.4-4.8); Alkaline Phosphatase 99 U/L (40-110); Anion Gap 15 mmol/L (10-20); BUN (Urea Nitrogen) 20 mg/dL (8.4-25.7); Bilirubin, Total 0.3 mg/dL (0.2-1.2); Calc. Creatinine Clearance 0 mL/min (70-130); Calcium 9.6 mg/dL (7.8-10.44); Carbon Dioxide 23 mmol/L (23-31); Chloride 101 mmol/L (98-107); Globulin 4.6 g/dL (2.4-3.5); Glucose 168 mg/dL (80-115); Protein, Total 8.4 g/dL (5.8-8.1); Sodium 135 mmol/L (136-145)
[2021-03-06] MEDS ORDERED: Morphine 4 MG/ML VIAL ONE (11:52)
[2021-03-06] MEDS ORDERED: Dextrose 50% Abboject 50 ML SYRINGE SLOW IVP PRN (15:50)
[2021-03-06] MEDS ORDERED: HumaLOG 300 UNITS/3 ML VIAL SC PRN ×2 (15:50→16:20)
[2021-03-06] MEDS ORDERED: Dextrose 5% in Water 1,000 ML IV PRN (15:50)
[2021-03-06] MEDS ORDERED: Morphine 2 MG/ML VIAL SLOW IVP PRN (15:58)
[2021-03-06] MEDS ORDERED: HYDROcodone/Acetaminophen 10/325 mg Tablet PO PRN ×2 (16:00→16:36)
[2021-03-06] MEDS ORDERED: Nicotine 14 MG PATCH TD SCH (16:00)
[2021-03-06] MEDS ORDERED: Albuterol Sulfate 1.25 MG/3 ML NEB NEB PRN (16:38)
[2021-03-06] MEDS ORDERED: Melatonin 3 MG TAB PO PRN (16:41)
[2021-03-06] MEDS: Acetaminophen 500 MG TAB PO SCH (19:21)
[2021-03-06] MEDS: Carvedilol 6.25 MG TAB PO SCH (19:21)
[2021-03-06 19:31] VITALS: BMI 31.2
[2021-03-06] MEDS ORDERED: Atorvastatin Calcium 40 MG TAB PO SCH (21:00)
[2021-03-06] MEDS ORDERED: NIFEdipine XL 90 MG TAB PO SCH (21:00)
[2021-03-06] MEDS ORDERED: Amitriptyline HCl 25 MG TAB PO SCH (21:00)
[2021-03-06] MEDS ORDERED: Lantus 1000 UNITS/10 ML VIAL SC SCH (21:00)
[2021-03-06] MEDS: levETIRAcetam 500 MG TAB PO SCH (21:30)
[2021-03-06] MEDS: Lisinopril 10 MG TAB PO SCH (21:30)
[2021-03-06] MEDS: Methocarbamol 500 MG TAB PO SCH (21:31)
[2021-03-06] MEDS: Ipratropium Bromide 2.5 ml Neb NEB SCH (23:18)
[2021-03-07] MEDS: Ipratropium Bromide 2.5 ml Neb NEB SCH ×3 (01:18→14:11)
[2021-03-07] MEDS: Acetaminophen 500 MG TAB PO SCH ×3 (02:03→11:53)
[2021-03-07 04:33] LABS: ALT (SGPT) 31 U/L (8-55); AST (SGOT) 31 U/L (5-34); Albumin 3.7 g/dL (3.4-4.8); Alkaline Phosphatase 94 U/L (40-110); Anion Gap 11 mmol/L (10-20); BUN (Urea Nitrogen) 22 mg/dL (8.4-25.7); Bilirubin, Total 0.3 mg/dL (0.2-1.2); Calc. Creatinine Clearance 84 mL/min (70-130); Calcium 9.6 mg/dL (7.8-10.44); Carbon Dioxide 28 mmol/L (23-31); Chloride 103 mmol/L (98-107); Glucose 120 mg/dL (80-115); Potassium 3.3 mmol/L (3.5-5.1); Protein, Total 7.7 g/dL (5.8-8.1); Sodium 139 mmol/L (136-145)
[2021-03-07] MEDS ORDERED: Potassium Chloride 20 MEQ TAB PO SCH (05:45)
[2021-03-07 07:10] LABS: Phosphorus 3.4 mg/dL (2.3-4.7)
[2021-03-07 08:32] VITALS: TEMP 97.7
[2021-03-07] MEDS ORDERED: Escitalopram Oxalate 20 mg Tablet PO SCH (09:00)
[2021-03-07] MEDS ORDERED: Insulin Glargine 42 UNITS in Pre-Filled Syringe 1 EACH SC SCH (09:00)
[2021-03-07] MEDS ORDERED: Furosemide 40 MG TAB PO SCH (09:00)
[2021-03-07] MEDS ORDERED: Enoxaparin Sodium 40 MG/0.4 ML SYRINGE SC SCH (09:00)
[2021-03-07] MEDS ORDERED: Lantus 1000 UNITS/10 ML VIAL SC SCH (09:00)
[2021-03-07 09:03] LABS: SARS-CoV-2 PCR by NAA Not Detected (NotDetected)
[2021-03-07] MEDS: Lisinopril 10 MG TAB PO SCH (09:49)
[2021-03-07] MEDS: levETIRAcetam 500 MG TAB PO SCH (09:50)
[2021-03-07] MEDS: Carvedilol 6.25 MG TAB PO SCH (09:50)
[2021-03-07] MEDS: Methocarbamol 500 MG TAB PO SCH (09:51)
[2021-03-07 12:12] VITALS: BP 99/64
== END 2021-03-07 15:47 | disposition home or self-care (01) ==
LOC: ERS 10:13 → 2NO 14:15
PROVIDERS: ADMIT Family Medicine; ATTEND Family Medicine
DX: R55 Syncope and collapse (principal); S32.029A Unspecified fracture of second lumbar vertebra, initial encounter for closed fracture; S32.039A Unspecified fracture of third lumbar vertebra, initial encounter for closed fracture; I13.0 Hypertensive heart and chronic kidney disease with heart failure and stage 1 through stage 4 chronic kidney disease, or unspecified chronic kidney disease; E11.22 Type 2 diabetes mellitus with diabetic chronic kidney disease; N18.30 Chronic kidney disease, stage 3 unspecified; I50.30 Unspecified diastolic (congestive) heart failure; F17.210 Nicotine dependence, cigarettes, uncomplicated; G47.33 Obstructive sleep apnea (adult) (pediatric); J44.9 Chronic obstructive pulmonary disease, unspecified; I48.0 Paroxysmal atrial fibrillation; I25.10 Atherosclerotic heart disease of native coronary artery without angina pectoris; R56.9 Unspecified convulsions; M48.061 Spinal stenosis, lumbar region without neurogenic claudication; M48.07 Spinal stenosis, lumbosacral region; G89.29 Other chronic pain; M54.5 Low back pain; I25.2 Old myocardial infarction; Z86.73 Personal history of transient ischemic attack (TIA), and cerebral infarction without residual deficits; Z79.4 Long term (current) use of insulin; Z79.82 Long term (current) use of aspirin; Z79.899 Other long term (current) drug therapy; Z88.1 Allergy status to other antibiotic agents; Z88.2 Allergy status to sulfonamides; Z95.810 Presence of automatic (implantable) cardiac defibrillator; Z20.822 Contact with and (suspected) exposure to COVID-19; W18.30XA Fall on same level, unspecified, initial encounter
CPT/HCPCS: 72131; 80053 ×2; 80177; 82962 ×2; 83735; 84100; 84484; 85025; 86850; 86900; 86901; 94640; 96374; 97139; 99285; U0003; U0005; 36415; 36416; 93005; 96372; G0378; J1650; J1815; J2270